=== PATIENT | male | born 1955 | race Caucasian/White ===

== ENCOUNTER → 2016-10-07 | Outpatient (CLI) | payer OTHER ==
[~2016-10-07] MED LIST: /IPRAINH INH; /METO25TAB PO; ADV100INH INH; ALBU17IN INH; ALBU17IN2 INH; AMLO10TA PO; ASPI81TA85 PO; ASPI81TAEC PO; ATIV1TAB10 PO; ATOR40TA PO; ATORVASTATIN PO; ATROVENT INHALER INH; CEFA2IV2 IV; CLOP75TA2 PO; CYCL10TA PO; CYCL10TA3 PO; ETOD200C31 PO; ETOD20CA PO; FISH1000 PO; FLUC10TA PO; LEVA750T PO; LEVO750T PO; LISI-542 PO; LISI10TA4 PO; LOPR1TAB7 PO; MEGA40SU PO; METO-209 PO; METO100T PO; METO25TA2 PO; NICO21PAT TD; ONDA1TAB15 PO; PLAV75TA38 PO; PRED10TA PO; PRED20TAB PO; PROC10TA PO; SPIR1CAP INH; SPIRIVA INH; SYMB16INH INH; TERA1CA PO; TERA2CAP3 PO; TYLE325T5 PO; TYLE500T78 PO; TYLE650T25 PO; ULTR50TA PO; [UNRECOGNIZED DRUG - CODE] INH; [UNRECOGNIZED DRUG - OTHER] PO
== END ==
LOC: M ONCR 14:50
PROVIDERS: ATTEND Radiology Radiation Oncology
DX: C34.32 Malignant neoplasm of lower lobe, left bronchus or lung (principal); C79.31 Secondary malignant neoplasm of brain

== ENCOUNTER → 2016-10-27 | Outpatient (REF) | payer OTHER | LOC: M LAB REF 16:54 | PROVIDERS: ATTEND Internal Medicine Medical Oncology | DX: C34.90 Malignant neoplasm of unspecified part of unspecified bronchus or lung (principal); Z79.899 Other long term (current) drug therapy ==

== ENCOUNTER → 2016-10-29 | Outpatient (CLI) | payer OTHER ==
--- NOTE | 2016-10-30 12:08 | REP ---
MRI BRAIN WITHOUT WITH CONTRAST: 10/29/2016. Clinical history: Restaging lung cancer. Metastatic disease to the brain post radiation therapy ending May 2016. Comparison: MRI brain without and with contrast 05/22/2016 at [facility] . Technique: Axial T1, T2 FLAIR gradient-echo images with diffusion weighted images and ADC mapping sequences along with a sagittal T1 sequence. After infusion of 15 mL as of ProHance, axial, coronal and sagittal T1 sequences were performed. Findings: The lateral ventricles are midline symmetric and mildly prominent but proportionate to the mild diffuse atrophy. This is not much changed. Basal ganglia were symmetric and grossly intact. There are scattered periventricular deep central and subcortical white matter hyperintense foci in both hemispheres similar to previous study. In the high right posterior paramedian parietal lobe there is a ring enhancing lesion. It now measures 2.1 x 1.3 x 1.2 cm. On the previous study it was 3.3 x 2.5 x 2.3 cm. The degree of surrounding vasogenic edema is significantly reduced on the T2 and FLAIR images with only a few millimeters in the depth surrounding the treated lesion. I do not see other ring enhancing lesions or masses. Again noted in the right frontal lobe from the periphery of the frontal pole to the white matter adjacent to the frontal horn is a linear venous anomaly has a benign finding and stable. There is no vascular territory infarct, hemorrhage, edema or other cerebral mass/mass effect. In the posterior fossa to the right of midline is a prominent arachnoid cyst which is seen on the previous exam and also CT brain exams dating back to 11/29/2006. There is no abnormal enhancement at its periphery, this is a benign finding. Some minor cerebellar atrophy of the vermis. Brainstem was unremarkable. The seventh/eighth cranial nerve complexes and mastoids were intact. A few ethmoid air cells with mucosal thickening with the frontal and sphenoid sinuses clear. Orbits and contents were symmetric and normal. The corpus callosum, optic chiasm and pituitary were unremarkable. There is no cerebellar tonsillar ectopia. Impression: 1. Interval radiation therapy treatment for metastatic disease in the high right posterior parietal lobe significant decrease in size of the ring enhancing lesion, now 2.1 x 1.3 x 1.2 cm, previously 3.3 x 2.3 x 2.5 cm and with significant reduction of the adjacent vasogenic edema. 2. Mild diffuse atrophy, a benign venous anomaly of the right frontal lobe which appears to be a venous angioma, and a stable arachnoid cyst right posterior fossa. No other acute finding or chronic finding. Signed by Andry Thompson MD 10/30/2016 04:45 P
== END ==
LOC: M RAD 16:58
PROVIDERS: ATTEND Internal Medicine Medical Oncology
DX: C34.90 Malignant neoplasm of unspecified part of unspecified bronchus or lung (principal); C79.31 Secondary malignant neoplasm of brain
CPT/HCPCS: 70553; A9576

== ENCOUNTER → 2016-12-01 | Outpatient (CLI) | payer OTHER ==
--- NOTE | 2016-12-02 08:17 | RADONC ---
RADIATION ONCOLOGY FOLLOWUP CONSULTATION NOTE DATE: 12/01/216 CHART NUMBER: [id number]. DIAGNOSIS: Small cell lung carcinoma. STAGE: Extensive. ECOG PERFORMANCE STATUS: 1 FOLLOWUP NOTE: Mr. Neves is a very pleasant 61-year-old white male with the diagnosis of extensive stage small cell lung carcinoma who is presenting to us today for a discussion of possible stereotactic radiosurgery for a residual right posterior parietal lobe lesion. HISTORY OF PRESENT ILLNESS: The patient was well known to us and was initially seen by us on May 25, 2016 for consideration of palliative radiation therapy for brain metastases. At that time the patient was found to have a 3.3 cm x 2.3 cm x 2.5 cm ring enhancing lesion in the right posterior parietal lobe. The patient underwent whole brain radiation therapy for a dose of 3000 cGy delivered in 10 fractions of 300 cGy each from May 27, 2016 through June 10, 2016. The brain was treated on a linear accelerator utilizing a 6 MV photon beam. He did well with his brain radiation. The patient subsequently initiated chemotherapy and concomitant thoracic consolidative radiation. He had a very difficult time tolerating those treatments. Overall, he had a total dose of 2700 cGy delivered in 15 fractions of 180 cGy each from 07/21/2016 through 09/04/2016 to his right lung and mediastinum. Radiation was then discontinued. He continued with his systemic therapy, which completed at the end of September. No followup CT scans or PET scans have been done since completion of systemic therapy. The patient reports that he has had some slight drooling out of the corner of his left mouth for the past few months. A new MRI was ordered of the brain which showed a significant reduction in the size of this tumor from an original 3.3 cm x 2.5 cm x 2.3 cm now down to 2.1 cm x 1.3 cm x 1.2 cm. There was also a significant reduction in the adjacent edema. He is now presenting to us for discussion of stereotactic radiosurgery. PAST MEDICAL HISTORY: The patient's past medical history is positive for COPD and emphysema. He has a history of hypertension and has had cardiac stents in the past. He has had cataracts as well as a hemorrhoidectomy and some type of hand surgery. ALLERGIES: The patient has no known drug allergies. SOCIAL HISTORY: The patient had smoked two packs of cigarettes per day for 50 years for over a 100 pack year smoking history. He drinks alcohol socially. FAMILY HISTORY: The patient's family history is positive for a mother with bladder cancer. REVIEW OF SYSTEMS: The patient's review of systems is positive for some difficulties with his knuckles and fingers. Apparently has had placement or surgery on of his right sided fingers. He is now having problems with the joints in his left side. He is [facility] PHYSICAL EXAMINATION: The patient is a chronically ill-appearing white male in no acute distress. HEENT: Exam is normocephalic, atraumatic. Extraocular movements are intact. There is no palpable cervical, supraclavicular, infraclavicular, axillary or inguinal lymphadenopathy present. His lungs are generally clear to auscultation and percussion. His heart has regular rate and rhythm. His abdomen is benign with no hepatosplenomegaly, masses or tenderness. He has tenderness and what appears to be perhaps a dislocated finger on his left hand. ASSESSMENT: At this point, I think it premature to recommend stereotactic radiosurgery for any residual brain tumor. Indeed volume fajardo, we are down to one-eighth of its original volume, having reduced almost one-half for each of the three sides measured. I have ordered a new PET scan to be undertaken on this patient. Pending the results of that, further recommendations can be made. Clearly, if there is disease throughout his body, then I would not recommend stereotactic radiosurgery for what may be a nonactive lesion in the brain. If the patient's state of disease below the brain is clear, then it would be reasonable to consider referring him to Dr. Ayala for consultation regarding the possibilities of stereotactic radiosurgery for residual brain tumor. Once again, I have scheduled the patient for a PET CT scan to be undertaken and we will see him following that study to make final recommendations. Thank you for allowing us to participate in the care of this very pleasant gentleman. If I could be of any further assistance or provide you with any information, please free to contact me anytime. cc: Marisa Serra MD *Britney Nick MD
== END ==
LOC: M ONCR 09:04
PROVIDERS: ATTEND Radiology Radiation Oncology
DX: C34.32 Malignant neoplasm of lower lobe, left bronchus or lung (principal); C79.31 Secondary malignant neoplasm of brain

== ENCOUNTER → 2016-12-01 | Outpatient (CLI) | payer OTHER ==
--- NOTE | 2016-12-01 12:09 | REP ---
Left hand series: Four views. History: Left hand pain. Comparison left hand radiographs are from September 10, 2008. Findings: There is advanced osteoarthritis of the first carpometacarpal articulation. Mild to moderate MCP joint osteoarthritis is seen in the thumb, index, long and ring fingers. There are lesser osteoarthritic changes at the index and long PIP and DIP joints. Subcortical cyst formation is seen in the distal aspect of the second and third metacarpals. No bony destructive lesion is appreciated. Impression: Osteoarthritic changes. Signed by Enrique Gillespie MD 12/01/2016 03:20 P
== END ==
LOC: M RAD 10:27
PROVIDERS: ATTEND Internal Medicine Medical Oncology
DX: M19.042 Primary osteoarthritis, left hand (principal)

== ENCOUNTER → 2016-12-02 | Outpatient (CLI) | payer OTHER ==
--- NOTE | 2016-12-02 19:39 | REP ---
PET/CT: History: Restaging lung carcinoma. Brain metastasis. Comparisons: Comparison PET-CT study is from the 06/10/2016. TECHNIQUE: 79 minutes following the intravenous injection of a 7.3 mCi dose of F-18 FDG, three-dimensional PET scintigraphy is acquired from the skull base to the proximal thighs. Triplanar noncontrast CT scanning is acquired through the same anatomic range for attenuation correction, and image registration with scan parameters optimized to minimize radiation exposure to the patient. PET scintigraphy and CT datasets were fused and displayed on a workstation with multiplanar and projection display capability. PET/CT Findings: There is a new zone of hypermetabolic activity in a nodule in the left lower lobe of the lung, maximum SUV value is 3.5. This somewhat spiculated lung lesion measures 2.5 cm in diameter. There is some at adjacent pulmonary parenchymal opacity which could be infiltrate. The accompanying CT study shows a subtle infiltrate more medially in the left lower lobe. No other abnormal hypermetabolic pulmonary parenchymal uptake is seen. The previously noted hilar and mediastinal adenopathy is no longer visible or hypermetabolic. No new mediastinal hypermetabolic uptake is seen. No adrenal hypermetabolic uptake is observed. In the abdomen and pelvis there is normal distribution of FDG. No abnormal abdominal or pelvic hypermetabolic uptake is seen. Head and neck soft tissues are unremarkable. Impression: The previously noted right hilar and mediastinal hypermetabolic adenopathy has resolved. There is some patchy consolidation in the left lower lobe which may be inflammatory. There is a 2.5 cm spiculated density in the left lower lobe which shows mildly hypermetabolic uptake today. No other abnormal hypermetabolic uptake is seen. Signed by Enrique Gillespie MD 12/03/2016 09:06 A
== END ==
LOC: M RAD 09:35
PROVIDERS: ATTEND Radiology Radiation Oncology
DX: C34.32 Malignant neoplasm of lower lobe, left bronchus or lung (principal)
CPT/HCPCS: 78815; A9552

== ENCOUNTER → 2016-12-10 | Outpatient (CLI) | payer OTHER ==
--- NOTE | 2016-12-16 07:37 | RADONC ---
RADIATION ONCOLOGY PROGRESS NOTE DATE: 12/10/2016 CHART NUMBER: [id number]. DIAGNOSIS: Small cell lung cancer. STAGE: Extensive. ECOG PERFORMANCE STATUS: 1. FOLLOWUP NOTE: Mr. Neves is a very pleasant, 61-year-old white male with the diagnosis of extensive stage small cell lung carcinoma who presented to us on 12/01/2016 for discussion of any further radiation therapy to his brain metastases. Since his consultation, I have presented this case at our multidisciplinary tumor board and I have discussed it in detail with our radiologist, Dr. Gillespie. The volume of the brain target has decreased significantly. Indeed it is approximately 1/8th its previous volume and there is significantly less edema. There is no prove that this is active at this time and considering the fact that he is doing well with no new symptoms or problems it is been recommended to watch this at this point. Of greater significance is some activity in the lung. It was thought to be inflammatory in nature, but as per our discussion, it may be worth following or undergoing further workup. Indeed, if this were to be disease, some type of alternative systemic therapy may be indicated. The consensus appeared to be to repeat x-ray studies in 2 months to 3 months. Therefore, I have set him up for a followup in three months' time. He will also continue his close management and followup through his medical oncologist, Dr. Serra. cc: Marisa Serra MD *Britney Nick MD
== END ==
LOC: M ONCR 14:49
PROVIDERS: ATTEND Radiology Radiation Oncology
DX: C34.32 Malignant neoplasm of lower lobe, left bronchus or lung (principal); C79.31 Secondary malignant neoplasm of brain

== ENCOUNTER → 2017-03-10 | Outpatient (CLI) | payer OTHER ==
--- NOTE | 2017-03-11 08:21 | RADONC ---
RADIATION ONCOLOGY FOLLOWUP NOTE DATE: 03/10/2017 CHART NUMBER: [id number] DIAGNOSIS: Small cell lung carcinoma. STAGE: extensive. ECOG performance status: one. FOLLOWUP NOTE: Mr. Neves is a very pleasant 61-year-old white male with the diagnosis of extensive stage small cell lung carcinoma who is presenting to us today for routine followup visit 7 months post completion of external beam radiation therapy to his lung and 9 months post completion of external beam radiation therapy to his brain. The patient presents today reporting that generally he is doing quite well. He has no new episodes of shortness of breath or headaches. He is having no increased or different bone pain. He has no hemoptysis or other new problems. He continues to have some generalized weakness and inability to gain weight. He is able to swallow ever. REVIEW OF SYSTEMS: The patient's review of systems is noncontributory. Denies nausea, vomiting, fevers, chills, night sweats, diplopia, headaches, anxiety or depression, anorexia, weight loss, visual disturbances, chest pain, urinary or bowel difficulties, bone pain, or neurological problems. PHYSICAL EXAMINATION: The patient is a well-developed, well-nourished male in no acute distress. HEENT exam is normocephalic, atraumatic. Extraocular movements are intact. There is no palpable cervical, supraclavicular, infraclavicular, axillary, or inguinal lymphadenopathy present. Lungs are clear to auscultation and percussion. Heart has a regular rate and rhythm. Abdomen is benign with no hepatosplenomegaly, masses, or tenderness. Rectal examination reveals a normal anal sphincter tone. Skeletal examination reveals no tenderness to pressure or percussion of the bony skeleton. Extremities reveal no clubbing, cyanosis, or edema. Neurologic exam is grossly intact, as is the remainder of the physical examination. ASSESSMENT: The patient is generally clinically stable at this point. I have scheduled him to see me again in 3 months for further followup. He is scheduled see his medical oncologist, Dr. Serra, tomorrow. I have ordered a new CT scan of the chest to be undertaken as a followup to his CT scan done 12/02/2016 which showed a 2.5 cm spiculated density in the left lower lobe which was mildly hypermetabolic in uptake. In addition, I have ordered a new MRI of the brain to be done as a followup to the one done 10/29/2016 which showed a continued to 2.1 cm x 1.3 cm x 1.2 cm lesion in the high right posterior paramedial parietal lobe. I will be discussing this case with the patient's medical oncologist, Dr. Serra, after he sees him tomorrow afternoon. cc: MD Britney Peters MD [facility] HOSPITALNadya
== END ==
LOC: M ONCR 14:01
PROVIDERS: ATTEND Radiology Radiation Oncology
DX: C34.32 Malignant neoplasm of lower lobe, left bronchus or lung (principal); C79.31 Secondary malignant neoplasm of brain

== ENCOUNTER → 2017-03-16 | Outpatient (CLI) | payer OTHER ==
[~2017-03-16] MED LIST changes: +DEXA4TA PO; +GASTROGRAFIN SOLUTION 30ML (Q9963) As Ordered ONE; +ISOVUE-370 76% 100ML VIAL (Q9967) As Ordered ONE
--- NOTE | 2017-03-16 15:16 | REP ---
HISTORY: Metastatic brain disease. COMPARISON: 10/29/2016 Gadolinium utilized: 14 mL of ProHance. There is an area of encephalomalacia seen in the right posterior parietal lobe near the convexities, which is unchanged. The slight degree of enhancement seen circumferential to this region again is decreased compared to the prior. In the left posterior parietal lobe there is a new 1 x 0.9 x 0.8 cm sized enhancing lesion with T2 hypersignal surrounding it. There are no other significant changes compared to the prior exam. IMPRESSION: 1. New enhancing brain lesion in the left posterior parietal lobe consistent with metastatic disease. 2. Continually evolving and improving area of encephalomalacia seen in the right posterior parietal lobe near the convexities as described above. Signed by Matt Washington DO 03/16/2017 04:02 P
== END ==
LOC: M RAD 11:00
PROVIDERS: ATTEND Radiology Radiation Oncology
DX: C34.90 Malignant neoplasm of unspecified part of unspecified bronchus or lung (principal); C79.31 Secondary malignant neoplasm of brain
CPT/HCPCS: 70553; A9576; Q9963; Q9967

== ENCOUNTER → 2017-03-19 | Outpatient (CLI) | payer OTHER ==
[~2017-03-19] MED LIST changes: -GASTROGRAFIN SOLUTION 30ML (Q9963) As Ordered ONE; -ISOVUE-370 76% 100ML VIAL (Q9967) As Ordered ONE
--- NOTE | 2017-03-19 12:40 | REP ---
CT CHEST WITH IV CONTRAST: TECHNIQUE: Axial contrast enhanced images from the thoracic inlet to the upper abdomen using 100 mL Isovue 370 intravenous contrast material with multiplanar reformations. There are diffuse fibrotic changes in the lungs with a predominance of pleural and parenchymal fibrosis medially and anteriorly likely due to prior radiation. Focal fibroatelectatic change is seen in the lingula with a small calcification. There is a tiny 3 mm nodular opacity in the left lower lobe on image 79 which is of doubtful significance. Comparing to the prior CT from the [place] in [place] 04/24/2016 there has been significant improvement of the mediastinal adenopathy. No enlarged mediastinal or hilar lymph nodes are present. Subcentimeter lymph nodes are seen. There is mild pericardial fluid. There is no pleural effusion. The heart is not enlarged. There are degenerative changes of the spine. IMPRESSION: Fibrotic changes. Tiny 3 mm nodular opacity in the left lower lobe is of doubtful significance. Previously noted mediastinal adenopathy has significantly improved with no significant adenopathy in the mediastinal or hilar regions at this time. Mild pericardial effusion. Signed by Shaw Perez MD 03/19/2017 03:16 P
--- NOTE | 2017-03-19 13:04 | REP ---
REASON: History of lung carcinoma. COMPARISON: 07/18/2016 which is the latest prior. CONTRAST: 100 mL Isovue 370. The precontrast enhanced portion of the examination shows no change in the appearance of hepatic or splenic densities. There is a small but new pericardial effusion. There are no nephroliths or choleliths. Contrast enhanced portion of the examination shows the liver, gallbladder, spleen, pancreas, adrenal glands, and kidneys to be within normal limits. Note is again made of an infrarenal abdominal aortic aneurysm unchanged in its greatest AP dimension measuring approximately 3.6 cm in its maximal dimension. There is no para-aortic adenopathy. Evaluation of the bowel loops and their mesenteries show them to be within normal limits. There is no free fluid or free air in the abdomen. CT PELVIS: There is no free fluid or free air. The bowel loops and their mesenteries are within normal limits. There is no evidence of a mass or adenopathy. Bone window technique throughout the exam shows no significant change in the appearance of the osseous structures. Spinal degenerative changes are noted status quo. IMPRESSION: No evidence of acute intra-abdominal or intrapelvic disease with findings as described above. There is a stable infrarenal abdominal aortic aneurysm. Signed by Matt Washington DO 03/19/2017 01:43 P
== END ==
LOC: M RAD 06:35
PROVIDERS: ATTEND Radiology Radiation Oncology
DX: Z85.118 Personal history of other malignant neoplasm of bronchus and lung (principal)

== ENCOUNTER → 2017-03-25 | Outpatient (CLI) | payer OTHER ==
[~2017-03-25] MED LIST changes: -ATOR40TA PO; +ATOR40TA75 PO; -LEVA750T PO; +LEVA750T7 PO; -METO-209 PO; -METO100T PO; +METO100T5 PO; +METO1TAB33 PO; -ONDA1TAB15 PO; +ONDA4TAB5 PO; +PLAV1TAB2 PO; -PLAV75TA38 PO
--- NOTE | 2017-03-25 15:33 | RADONC ---
RADIATION ONCOLOGY CONSULTATION NOTE: DATE: 03/25/2017 CHART NUMBER: [id number] DIAGNOSIS: Small cell lung carcinoma. STAGE: Extensive. ECOG PERFORMANCE STATUS: 1 Mr. Neves is a very pleasant 61-year-old white male with the diagnosis of extensive stage small cell lung carcinoma who is presenting to us today for discussion of possible Re-irradiation to his brain for a new brain metastasis. HISTORY OF PRESENT ILLNESS: The patient is well-known to our department and has been treated on multiple occasions in the past. Most significantly, he completed a course of 3000 cGy delivered in 10 fractions of 300 cGy each from 05/27/2016 through 06/10/2016 to the whole brain for brain metastasis. An MRI of the brain was done on 03/16/2017, which showed complete resolution of the previous lesions. Unfortunately, he developed a new left posterior parietal lobe 1 cm x 0.9 cm x 0.8 cm lesion consistent with a new metastasis. REVIEW OF SYSTEMS: The patient's review of systems is positive for decreased energy and fatigue. It is otherwise largely noncontributory. He denies nausea, vomiting, fevers, chills, night sweats, diplopia, headaches, anxiety or depression, anorexia, weight loss, visual disturbances, chest pain, urinary or bowel difficulties, bone pain, or neurological problems. PHYSICAL EXAMINATION: The patient is a well-developed, well-nourished male in no acute distress. HEENT exam is normocephalic, atraumatic. Extraocular movements are intact. There is no palpable cervical, supraclavicular, infraclavicular, axillary, or inguinal lymphadenopathy present. Lungs are clear to auscultation and percussion. Heart has a regular rate and rhythm. Abdomen is benign with no hepatosplenomegaly, masses, or tenderness. Skeletal examination reveals no tenderness to pressure or percussion of the bony skeleton. Extremities reveal no clubbing, cyanosis, or edema. Neurologic exam is grossly intact, as is the remainder of the physical examination. ASSESSMENT: I had a very lengthy discussion with this patient regarding the possibilities of repeat radiation to his whole brain for this new metastatic site. We discussed the risks or re-irradiation and the possibilities of long-term, permanent and possibly severe brain damage. In light of the fact that we now have a new growing lesion, I think treatment of this area will be required. It is the only reasonable option at this point. The lesion is still rather small and hopefully can be controlled with a limited dose of radiation. The patient has already received 3000 cGy in 10 fractions of 300 cGy each. I am considering delivering an additional 2000 cGy to the entire whole brain and subsequently coning down to the lesion itself for an additional 500 cGy bringing that area to a dose of 2500 cGy in 10 fractions of 250 cGy each. I believe that fractionation and dose schedule will provide the optimal balance between local control as well as elimination of any microscopic unseen sites with the possibility of any long-term difficulties. The patient has agreed to this plan and we will be scheduling him for initiation of treatment planning and simulation. Once again I did discuss with him the logistics of treatment planning simulation and subsequent fractionated daily radiation treatments. Thank you for allowing us to participate in the care of this very pleasant gentleman. Again I will keep you informed of any new developments as they occur. As always warm regards, cc: MD Britney Peters MD
== END ==
LOC: M ONCR 13:54
PROVIDERS: ATTEND Radiology Radiation Oncology
DX: C34.90 Malignant neoplasm of unspecified part of unspecified bronchus or lung (principal)

== ENCOUNTER 2017-04-12 09:20 | Outpatient (RCR) | payer OTHER ==
--- NOTE | 2017-04-12 11:05 | RADONC ---
RADIATION ONCOLOGY SIMULATION NOTE: DATE: 04/12/2017 CHART NUMBER: [id number] Mr. Neves was taken to the CT scan for CT simulation of his whole brain field. CT was accomplished without difficulty or discomfort. Radiation treatment planning is underway and radiation treatments will begin subsequently. An immobilization device including a mask was created without difficulty or discomfort. This will be utilized throughout the course of treatment as well. I was physically present throughout the course of CT simulation. TERESAD
--- NOTE | 2017-04-20 07:59 | RADONC ---
RADIATION ONCOLOGY PROGRESS NOTE DATE: 04/19/2017 CHART NUMBER: [id number] Mr. Neves underwent his first fraction of radiation to the whole brain today. It was tolerated without difficulty or discomfort. REVIEW OF SYSTEMS: The patient's review of systems remains unchanged. PHYSICAL EXAMINATION: The patient's physical exam also remains unchanged. Clearly the skin showed no radiation change. Mr. Neves tolerated his first fraction quite well and radiation will continue as scheduled.
== END 2017-04-26 ==
LOC: M ONCR 09:20
PROVIDERS: ATTEND Radiology Radiation Oncology
DX: C79.31 Secondary malignant neoplasm of brain (principal); C34.32 Malignant neoplasm of lower lobe, left bronchus or lung

== ENCOUNTER → 2017-04-12 | Outpatient (CLI) | payer OTHER | LOC: M RAD 10:31 | PROVIDERS: ATTEND Radiology Radiation Oncology | DX: C34.90 Malignant neoplasm of unspecified part of unspecified bronchus or lung (principal) ==

== ENCOUNTER 2017-04-27 10:18 | Outpatient (RCR) | payer OTHER ==
--- NOTE | 2017-05-03 09:49 | RADONC ---
RADIATION ONCOLOGY TREATMENT SUMMARY: DATE: 04/30/2017 CHART NUMBER: [id number]. DIAGNOSIS: Small cell lung cancer. STAGE: Extensive. ECOG PERFORMANCE STATUS: 1. TREATMENT SUMMARY: Mr. Neves is a 61-year-old white male with the diagnosis of recurrent brain metastasis from small cell lung carcinoma who presented to us for consideration of re-irradiation therapy to his brain. We treated the patient to his whole brain for a total dose of 2000 cGy delivered in 8 fractions of 250 cGy each over 9 elapsed days, from 04/19/2017 through 04/28/2017. The patient's whole brain was treated on a linear accelerator utilizing a 6MV photon beam via parallel opposed lateral shaver. Following completion of 2000 cGy of the whole brain, an additional 500 cGy was delivered in 2 fractions of 250 cGy each to the visualized brain metastases. The two extra fractions was delivered over two elapsed days, from 04/29/2017 through 04/30/2017. This brought those lesions to a total dose of 2500 cGy delivered in 10 fractions of 250 cGy each over 11 elapsed days, from 04/19/2017 through 04/30/2017. The coned down was delivered on a linear accelerator utilizing a 6MV photon beam again via parallel opposed lateral shaver. Mr. Neves tolerated his treatments quite well with no difficulties related to his radiation therapy. He was able to complete therapy as prescribed without interruption. The patient is scheduled see me again in 1 month for further followup. He will also continue to be followed by his other physicians as well. cc: MD Britney Peters MD
== END 2017-05-27 ==
LOC: M ONCR 10:18
PROVIDERS: ATTEND Radiology Radiation Oncology
DX: C79.31 Secondary malignant neoplasm of brain (principal); C34.32 Malignant neoplasm of lower lobe, left bronchus or lung

== ENCOUNTER → 2017-06-09 | Outpatient (CLI) | payer OTHER ==
--- NOTE | 2017-06-10 09:01 | RADONC ---
RADIATION ONCOLOGY FOLLOWUP NOTE DATE: 06/09/2017 CHART NUMBER: [id number]. DIAGNOSIS: Small cell lung cancer. STAGE: Extensive. ECOG PERFORMANCE STATUS: 1. FOLLOWUP NOTE: Mr. 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 The patient presents today reporting that he is doing exceedingly well with no significant difficulties related to his radiation therapy at this time other than a mild posterior acceptable headache, which is occasional. He is having no neurological problems or other issues. REVIEW OF SYSTEMS: The patient's review of systems is noncontributory. Denies nausea, vomiting, fevers, chills, night sweats, diplopia, headaches, anxiety or depression, anorexia, weight loss, visual disturbances, chest pain, urinary or bowel difficulties, bone pain, or neurological problems. PHYSICAL EXAMINATION: The patient is a well-developed, well-nourished male in no acute distress. HEENT exam is normocephalic, atraumatic. Extraocular movements are intact. There is no palpable cervical, supraclavicular, infraclavicular, axillary, or inguinal lymphadenopathy present. Lungs are clear to auscultation and percussion. Heart has a regular rate and rhythm. Abdomen is benign with no hepatosplenomegaly, masses, or tenderness. Rectal examination reveals a normal anal sphincter tone. Skeletal examination reveals no tenderness to pressure or percussion of the bony skeleton. Extremities reveal no clubbing, cyanosis, or edema. Neurologic exam is grossly intact, as is the remainder of the physical examination. ASSESSMENT: The patient is clinically stable at this time. He is scheduled for a new scans with Dr. Serra and further discussion of systemic therapy is being undertaken. In the meantime, his recurrent brain metastasis seems stable and I have set him up for routine followup in our office in 3 months' time. cc: MD Britney Peters MD
== END ==
LOC: M ONCR 15:00
PROVIDERS: ATTEND Radiology Radiation Oncology
DX: C34.32 Malignant neoplasm of lower lobe, left bronchus or lung (principal); C79.31 Secondary malignant neoplasm of brain

== ENCOUNTER → 2017-09-15 | Outpatient (CLI) | payer OTHER ==
--- NOTE | 2017-09-18 14:31 | RADONC ---
RADIATION ONCOLOGY FOLLOWUP NOTE DATE: 09/15/2017 CHART NUMBER: [id number] DIAGNOSIS: Small cell lung carcinoma. STAGE: Extensive. ECOG PERFORMANCE STATUS: 1. FOLLOWUP NOTE: Mr. 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 The patient presents today reporting that generally he is doing quite well. He has no complaints at this time related to his radiation therapy. He reports that he is having no headaches, double vision or other neurological problems at this time. The patient's review of systems is generally noncontributory. He reports that overall he is feeling quite well. He denies nausea, vomiting, fevers, chills, night sweats, diplopia, headaches, anxiety, anorexia, visual disturbances, chest pain increased shortness of breath, urinary or bowel difficulties or neurological problems. PHYSICAL EXAMINATION: Patient is a cachectic, chronically ill-appearing white male in no acute distress. HEENT exam is normocephalic, atraumatic. Extraocular movements are intact. There is no palpable cervical, supraclavicular, infraclavicular, axillary, or inguinal lymphadenopathy present. Lungs are clear to auscultation and percussion. Heart has a regular rate and rhythm. Abdomen is benign with no hepatosplenomegaly, masses, or tenderness. Rectal examination reveals a normal anal sphincter tone. His prostate is smooth with no evidence of nodularity. Skeletal examination reveals no tenderness to pressure or percussion of the bony skeleton. Extremities reveal no clubbing, cyanosis, or edema. Neurologic exam is grossly intact as is the remainder of the physical examination. ASSESSMENT: The patient is being followed closely by Dr. Serra who is seeing him every 3 months. I do not have a report on any CAT scans or studies done since February and I had ordered new CT scans of the chest, abdomen and pelvis. Following that the patient told me he has just had CTs done in the [facility] [address] a few weeks ago. I do not have those results at this time. We will attempt to obtain them. In the meantime I have set this patient up for routine followup in our office in six months' time. He is continuing with his close followup with his medical oncologist. Once again I have cancelled all studies I have ordered since the patient says he has already had them recently. I will defer to Dr. Serra of any studies he may wish to add. cc: MD Britney Peters MD
== END ==
LOC: M ONCR 10:07
PROVIDERS: ATTEND Radiology Radiation Oncology
DX: C34.32 Malignant neoplasm of lower lobe, left bronchus or lung (principal); C79.31 Secondary malignant neoplasm of brain

== ENCOUNTER 2018-01-06 13:33 | Inpatient (IN) | payer OTHER, MEDICAID ==
[2018-01-06] MEDS: ONDANSETRON 4MG/2ML VIAL (J2405) IV (14:30)
[2018-01-06 15:24] LABS: HEMATOCRIT 42.8 % (42.0-52.0); HEMOGLOBIN 14.2 g/dl (13.5-17.5); MEAN CORPUSCULAR HEMOGLOBIN 31.8 pg (27.0-33.0); MEAN CORPUSCULAR HGB CONC 33.2 g/dl (32.0-36.5); MEAN CORPUSCULAR VOLUME 95.7 fl (80.0-96.0); PLATELET COUNT, AUTOMATED 164 10^3/uL (150-450); RED BLOOD COUNT 4.47 10^6/uL (4.30-6.10); RED CELL DISTRIBUTION WIDTH 13.6 % (11.5-14.5)
[2018-01-06] MEDS: MORPHINE 4 MG/ML 1ML VIAL/SYRINGE (J2270) IV ×2 (15:42→23:12)
[2018-01-06 16:27] LABS: INR 0.93; PROTHROMBIN TIME 12.5 SECONDS (12.4-14.5)
[2018-01-06 16:43] LABS: ALBUMIN 3.5 GM/DL (3.2-5.2); ALBUMIN/GLOBULIN RATIO 1.13 (1.00-1.93); ALKALINE PHOSPHATASE 62 U/L (45-117); ALT/SGPT 11 U/L (12-78); ANION GAP 4 MEQ/L (8-16); AST/SGOT 15 U/L (7-37); BILIRUBIN,DIRECT 0.1 MG/DL (0.0-0.2); BILIRUBIN,TOTAL 0.3 MG/DL (0.2-1.0); BLOOD UREA NITROGEN 19 MG/DL (7-18); CALCIUM LEVEL 8.9 MG/DL (8.8-10.2); CARBON DIOXIDE LEVEL 32 MEQ/L (21-32); CHLORIDE LEVEL 103 MEQ/L (98-107); CREATININE FOR GFR 0.87 MG/DL (0.70-1.30); GLOMERULAR FILTRATION RATE > 60.0 (>49); GLUCOSE, FASTING 86 MG/DL (70-100); POTASSIUM SERUM 3.8 MEQ/L (3.5-5.1); SODIUM LEVEL 139 MEQ/L (136-145); TOTAL PROTEIN 6.6 GM/DL (6.4-8.2)
[2018-01-06] MEDS ORDERED: ONDANSETRON 4MG/2ML VIAL (J2405) IV (17:30)
[2018-01-06] MEDS ORDERED: IPRATROPIUM 0.5MG/ALBUTEROL 2.5MG INH SOL UD 3ML (DUONEB)(J7620) NEB (17:30)
[2018-01-06] MEDS: IPRATROPIUM 0.5MG/ALBUTEROL 2.5MG INH SOL UD 3ML (DUONEB)(J7620) NEB (20:03)
[2018-01-06] MEDS: ATORVASTATIN 20 MG TAB PO (23:13)
[2018-01-07] MEDS: IPRATROPIUM 0.5MG/ALBUTEROL 2.5MG INH SOL UD 3ML (DUONEB)(J7620) NEB ×4 (01:52→20:46)
[2018-01-07] MEDS: MORPHINE 4 MG/ML 1ML VIAL/SYRINGE (J2270) IV ×2 (04:51→12:27)
[2018-01-07 07:22] LABS: HEMATOCRIT 40.4 % (42.0-52.0); HEMOGLOBIN 13.6 g/dl (13.5-17.5); MEAN CORPUSCULAR HEMOGLOBIN 31.8 pg (27.0-33.0); MEAN CORPUSCULAR HGB CONC 33.7 g/dl (32.0-36.5); MEAN CORPUSCULAR VOLUME 94.4 fl (80.0-96.0); PLATELET COUNT, AUTOMATED 157 10^3/uL (150-450); RED BLOOD COUNT 4.28 10^6/uL (4.30-6.10); RED CELL DISTRIBUTION WIDTH 13.6 % (11.5-14.5); WHITE BLOOD COUNT 9.2 10^3/uL (4.0-10.0)
[2018-01-07] MEDS: TAMSULOSIN 0.4 MG CAP PO (07:33)
[2018-01-07] MEDS: PERCOCET 5MG/325MG TAB PO ×2 (07:33→20:37)
[2018-01-07 07:58] LABS: ALBUMIN 3.4 GM/DL (3.2-5.2); ALBUMIN/GLOBULIN RATIO 0.89 (1.00-1.93); ALKALINE PHOSPHATASE 60 U/L (45-117); ALT/SGPT 10 U/L (12-78); ANION GAP 4 MEQ/L (8-16); AST/SGOT 10 U/L (7-37); BILIRUBIN,TOTAL 0.7 MG/DL (0.2-1.0); BLOOD UREA NITROGEN 13 MG/DL (7-18); CALCIUM LEVEL 8.9 MG/DL (8.8-10.2); CARBON DIOXIDE LEVEL 30 MEQ/L (21-32); CHLORIDE LEVEL 102 MEQ/L (98-107); CREATININE FOR GFR 0.77 MG/DL (0.70-1.30); GLOMERULAR FILTRATION RATE > 60.0 (>49); GLUCOSE, FASTING 106 MG/DL (70-100); MAGNESIUM LEVEL 1.9 MG/DL (1.8-2.4); POTASSIUM SERUM 3.7 MEQ/L (3.5-5.1); SODIUM LEVEL 136 MEQ/L (136-145); TOTAL PROTEIN 7.2 GM/DL (6.4-8.2)
[2018-01-07] MEDS: TIOTROPIUM INHALER/CAPSULE (SPIRIVA) INH (07:59)
[2018-01-07] MEDS: METOPROLOL TART 25 MG TABLET PO (20:38)
[2018-01-07] MEDS: ATORVASTATIN 20 MG TAB PO (20:38)
[2018-01-08] MEDS: ASPIRIN 81 MG ENTERIC TAB PO ×2 (00:44→08:22)
[2018-01-08] MEDS: MORPHINE 4 MG/ML 1ML VIAL/SYRINGE (J2270) IV ×2 (01:02→05:15)
[2018-01-08] MEDS: IPRATROPIUM 0.5MG/ALBUTEROL 2.5MG INH SOL UD 3ML (DUONEB)(J7620) NEB ×4 (02:00→21:05)
[2018-01-08 06:04] LABS: HEMATOCRIT 37.7 % (42.0-52.0); HEMOGLOBIN 12.8 g/dl (13.5-17.5); MEAN CORPUSCULAR HEMOGLOBIN 31.5 pg (27.0-33.0); MEAN CORPUSCULAR VOLUME 92.9 fl (80.0-96.0); PLATELET COUNT, AUTOMATED 143 10^3/uL (150-450); RED BLOOD COUNT 4.06 10^6/uL (4.30-6.10); RED CELL DISTRIBUTION WIDTH 13.2 % (11.5-14.5); WHITE BLOOD COUNT 8.5 10^3/uL (4.0-10.0)
[2018-01-08 06:21] LABS: ALBUMIN 3.1 GM/DL (3.2-5.2); ALBUMIN/GLOBULIN RATIO 0.86 (1.00-1.93); ALKALINE PHOSPHATASE 53 U/L (45-117); ALT/SGPT < 6 U/L (12-78); ANION GAP 6 MEQ/L (8-16); AST/SGOT 7 U/L (7-37); BILIRUBIN,TOTAL 0.6 MG/DL (0.2-1.0); BLOOD UREA NITROGEN 13 MG/DL (7-18); CALCIUM LEVEL 8.6 MG/DL (8.8-10.2); CARBON DIOXIDE LEVEL 28 MEQ/L (21-32); CHLORIDE LEVEL 103 MEQ/L (98-107); CREATININE FOR GFR 0.78 MG/DL (0.70-1.30); GLOMERULAR FILTRATION RATE > 60.0 (>49); GLUCOSE, FASTING 107 MG/DL (70-100); MAGNESIUM LEVEL 1.9 MG/DL (1.8-2.4); SODIUM LEVEL 137 MEQ/L (136-145); TOTAL PROTEIN 6.7 GM/DL (6.4-8.2)
[2018-01-08] MEDS: TIOTROPIUM INHALER/CAPSULE (SPIRIVA) INH (07:28)
[2018-01-08] MEDS: METOPROLOL TART 25 MG TABLET PO ×2 (08:23→20:58)
[2018-01-08] MEDS: TAMSULOSIN 0.4 MG CAP PO (08:23)
[2018-01-08] MEDS: PERCOCET 5MG/325MG TAB PO ×4 (08:24→12:26)
[2018-01-08] MEDS ORDERED: PROPOFOL 200 MG/20 ML VIAL As Ordered ×2 (09:14→10:41)
[2018-01-08] MEDS ORDERED: fentaNYL 100 MCG/2 ML INJECTION (J3010) As Ordered ×2 (09:15→11:24)
[2018-01-08] MEDS ORDERED: MIDAZOLAM INJ 5 MG/ML VIAL (J2250) As Ordered (09:15)
[2018-01-08] MEDS ORDERED: KETAMINE HCL 200 MG/20 ML VIAL As Ordered (09:17)
[2018-01-08] MEDS: ceFAZolin 2 GM/D5W 50 ML IV BAG (J0690 PER 500MG) As Ordered (09:37)
[2018-01-08] MEDS ORDERED: KETOROLAC 60 MG/2 ML VIAL (J1885) As Ordered (10:45)
[2018-01-08] MEDS ORDERED: ONDANSETRON 4MG/2ML VIAL (J2405) As Ordered (10:45)
[2018-01-08] MEDS ORDERED: PERCOCET 5MG/325MG TAB As Ordered (11:24)
[2018-01-08] MEDS: fentaNYL 100 MCG/2 ML INJECTION (J3010) IV ×4 (11:28→12:26)
[2018-01-08] MEDS ORDERED: ONDANSETRON 4MG/2ML VIAL (J2405) IV (11:30)
[2018-01-08] MEDS: LR 1,000 ML IV (11:30)
[2018-01-08] MEDS: NICOTINE 21MG/24HR 1 EA TRANSDERMAL TD (15:56)
[2018-01-08] MEDS: ATORVASTATIN 20 MG TAB PO (20:58)
[2018-01-08] MEDS: ACETAMINOPHEN TAB 650MG DOSE (2X325MG) PO (20:59)
[2018-01-09] MEDS ORDERED: traMADol 50 MG TAB PO ×3 (01:30→13:00)
[2018-01-09] MEDS: IPRATROPIUM 0.5MG/ALBUTEROL 2.5MG INH SOL UD 3ML (DUONEB)(J7620) NEB ×4 (01:55→20:00)
[2018-01-09 05:21] LABS: HEMATOCRIT 36.1 % (42.0-52.0); HEMOGLOBIN 12.2 g/dl (13.5-17.5); MEAN CORPUSCULAR HEMOGLOBIN 31.7 pg (27.0-33.0); MEAN CORPUSCULAR HGB CONC 33.8 g/dl (32.0-36.5); MEAN CORPUSCULAR VOLUME 93.8 fl (80.0-96.0); PLATELET COUNT, AUTOMATED 138 10^3/uL (150-450); RED BLOOD COUNT 3.85 10^6/uL (4.30-6.10); RED CELL DISTRIBUTION WIDTH 13.4 % (11.5-14.5); WHITE BLOOD COUNT 8.9 10^3/uL (4.0-10.0)
[2018-01-09 05:41] LABS: ALBUMIN 2.9 GM/DL (3.2-5.2); ALBUMIN/GLOBULIN RATIO 0.74 (1.00-1.93); ALKALINE PHOSPHATASE 58 U/L (45-117); ALT/SGPT 8 U/L (12-78); ANION GAP 7 MEQ/L (8-16); AST/SGOT 15 U/L (7-37); BILIRUBIN,TOTAL 0.7 MG/DL (0.2-1.0); BLOOD UREA NITROGEN 26 MG/DL (7-18); CALCIUM LEVEL 8.6 MG/DL (8.8-10.2); CARBON DIOXIDE LEVEL 27 MEQ/L (21-32); CHLORIDE LEVEL 103 MEQ/L (98-107); CREATININE FOR GFR 0.88 MG/DL (0.70-1.30); GLOMERULAR FILTRATION RATE > 60.0 (>49); GLUCOSE, FASTING 119 MG/DL (70-100); MAGNESIUM LEVEL 2.1 MG/DL (1.8-2.4); SODIUM LEVEL 137 MEQ/L (136-145); TOTAL PROTEIN 6.8 GM/DL (6.4-8.2)
[2018-01-09] MEDS: TIOTROPIUM INHALER/CAPSULE (SPIRIVA) INH (07:14)
[2018-01-09] MEDS: ASPIRIN 81 MG ENTERIC TAB PO (07:37)
[2018-01-09] MEDS: NICOTINE 21MG/24HR 1 EA TRANSDERMAL TD (07:38)
[2018-01-09] MEDS: TAMSULOSIN 0.4 MG CAP PO (07:38)
[2018-01-09] MEDS: METOPROLOL TART 25 MG TABLET PO ×2 (07:38→21:37)
[2018-01-09] MEDS: PERCOCET 5MG/325MG TAB PO (07:38)
[2018-01-09 08:46] LABS: INR 1.08; PROTHROMBIN TIME 14.1 SECONDS (12.4-14.5)
[2018-01-09] MEDS: MIRALAX *UNIT DOSE* 17GM PACKET PO (17:03)
[2018-01-09] MEDS: WARFARIN SOD 5 MG TAB PO (17:04)
[2018-01-09] MEDS: MOM 30ML SUSPENSION UDC PO (17:04)
[2018-01-09] MEDS: ACETAMINOPHEN TAB 650MG DOSE (2X325MG) PO ×2 (17:05→21:37)
[2018-01-09] MEDS: SENOKOT S TAB PO (21:37)
[2018-01-09] MEDS: ATORVASTATIN 20 MG TAB PO (21:38)
[2018-01-10] MEDS: IPRATROPIUM 0.5MG/ALBUTEROL 2.5MG INH SOL UD 3ML (DUONEB)(J7620) NEB ×5 (02:00→23:27)
[2018-01-10] MEDS: traMADol 50 MG TAB PO ×2 (05:26→22:02)
[2018-01-10] MEDS: ACETAMINOPHEN TAB 650MG DOSE (2X325MG) PO ×2 (05:32→22:03)
[2018-01-10 06:55] LABS: HEMATOCRIT 34.4 % (42.0-52.0); HEMOGLOBIN 11.5 g/dl (13.5-17.5); MEAN CORPUSCULAR HEMOGLOBIN 31.8 pg (27.0-33.0); MEAN CORPUSCULAR HGB CONC 33.4 g/dl (32.0-36.5); PLATELET COUNT, AUTOMATED 111 10^3/uL (150-450); RED BLOOD COUNT 3.62 10^6/uL (4.30-6.10); RED CELL DISTRIBUTION WIDTH 13.5 % (11.5-14.5); WHITE BLOOD COUNT 6.6 10^3/uL (4.0-10.0)
[2018-01-10 07:05] LABS: INR 1.05; PROTHROMBIN TIME 13.8 SECONDS (12.4-14.5)
[2018-01-10 07:22] LABS: ALBUMIN 2.9 GM/DL (3.2-5.2); ALBUMIN/GLOBULIN RATIO 0.76 (1.00-1.93); ALKALINE PHOSPHATASE 53 U/L (45-117); ALT/SGPT < 6 U/L (12-78); ANION GAP 6 MEQ/L (8-16); AST/SGOT 12 U/L (7-37); BILIRUBIN,TOTAL 0.6 MG/DL (0.2-1.0); BLOOD UREA NITROGEN 22 MG/DL (7-18); CALCIUM LEVEL 8.5 MG/DL (8.8-10.2); CARBON DIOXIDE LEVEL 29 MEQ/L (21-32); CHLORIDE LEVEL 103 MEQ/L (98-107); CREATININE FOR GFR 0.76 MG/DL (0.70-1.30); GLOMERULAR FILTRATION RATE > 60.0 (>49); GLUCOSE, FASTING 113 MG/DL (70-100); MAGNESIUM LEVEL 2.2 MG/DL (1.8-2.4); POTASSIUM SERUM 4.1 MEQ/L (3.5-5.1); SODIUM LEVEL 138 MEQ/L (136-145); TOTAL PROTEIN 6.7 GM/DL (6.4-8.2)
[2018-01-10] MEDS: TIOTROPIUM INHALER/CAPSULE (SPIRIVA) INH (07:33)
[2018-01-10] MEDS: MOM 30ML SUSPENSION UDC PO (10:03)
[2018-01-10] MEDS: ASPIRIN 81 MG ENTERIC TAB PO (10:03)
[2018-01-10] MEDS: TAMSULOSIN 0.4 MG CAP PO (10:03)
[2018-01-10] MEDS: SENOKOT S TAB PO ×2 (10:03→22:02)
[2018-01-10] MEDS: MIRALAX *UNIT DOSE* 17GM PACKET PO (10:03)
[2018-01-10] MEDS: NICOTINE 21MG/24HR 1 EA TRANSDERMAL TD (10:03)
[2018-01-10] MEDS: METOPROLOL TART 25 MG TABLET PO ×2 (10:04→22:02)
[2018-01-10] MEDS: ATORVASTATIN 20 MG TAB PO (22:03)
[2018-01-11] MEDS: ACETAMINOPHEN TAB 650MG DOSE (2X325MG) PO ×3 (06:32→21:36)
[2018-01-11] MEDS: traMADol 50 MG TAB PO ×2 (06:33→16:01)
[2018-01-11 06:44] LABS: HEMATOCRIT 31.7 % (42.0-52.0); HEMOGLOBIN 10.5 g/dl (13.5-17.5); MEAN CORPUSCULAR HEMOGLOBIN 31.9 pg (27.0-33.0); MEAN CORPUSCULAR HGB CONC 33.1 g/dl (32.0-36.5); MEAN CORPUSCULAR VOLUME 96.4 fl (80.0-96.0); PLATELET COUNT, AUTOMATED 132 10^3/uL (150-450); RED BLOOD COUNT 3.29 10^6/uL (4.30-6.10); RED CELL DISTRIBUTION WIDTH 13.4 % (11.5-14.5); WHITE BLOOD COUNT 5.8 10^3/uL (4.0-10.0)
[2018-01-11 07:10] LABS: ALBUMIN 2.6 GM/DL (3.2-5.2); ALBUMIN/GLOBULIN RATIO 0.68 (1.00-1.93); ALKALINE PHOSPHATASE 50 U/L (45-117); ALT/SGPT < 6 U/L (12-78); ANION GAP 7 MEQ/L (8-16); AST/SGOT 11 U/L (7-37); BILIRUBIN,TOTAL 0.5 MG/DL (0.2-1.0); BLOOD UREA NITROGEN 22 MG/DL (7-18); CALCIUM LEVEL 8.2 MG/DL (8.8-10.2); CARBON DIOXIDE LEVEL 29 MEQ/L (21-32); CHLORIDE LEVEL 103 MEQ/L (98-107); CREATININE FOR GFR 0.75 MG/DL (0.70-1.30); GLOMERULAR FILTRATION RATE > 60.0 (>49); GLUCOSE, FASTING 94 MG/DL (70-100); MAGNESIUM LEVEL 2.4 MG/DL (1.8-2.4); POTASSIUM SERUM 4.2 MEQ/L (3.5-5.1); SODIUM LEVEL 139 MEQ/L (136-145); TOTAL PROTEIN 6.4 GM/DL (6.4-8.2)
[2018-01-11 07:13] LABS: INR 1.02; PROTHROMBIN TIME 13.6 SECONDS (12.4-14.5)
[2018-01-11] MEDS: TIOTROPIUM INHALER/CAPSULE (SPIRIVA) INH (07:21)
[2018-01-11] MEDS: IPRATROPIUM 0.5MG/ALBUTEROL 2.5MG INH SOL UD 3ML (DUONEB)(J7620) NEB ×3 (07:21→20:00)
[2018-01-11] MEDS: NICOTINE 21MG/24HR 1 EA TRANSDERMAL TD (09:47)
[2018-01-11] MEDS: SENOKOT S TAB PO ×2 (09:47→21:35)
[2018-01-11] MEDS: MIRALAX *UNIT DOSE* 17GM PACKET PO (09:47)
[2018-01-11] MEDS: MOM 30ML SUSPENSION UDC PO (09:47)
[2018-01-11] MEDS: TAMSULOSIN 0.4 MG CAP PO (09:47)
[2018-01-11] MEDS: ASPIRIN 81 MG ENTERIC TAB PO (09:47)
[2018-01-11] MEDS: METOPROLOL TART 25 MG TABLET PO ×2 (09:48→21:36)
[2018-01-11] MEDS: WARFARIN SOD 7.5 MG TAB PO (17:19)
[2018-01-11] MEDS: ATORVASTATIN 20 MG TAB PO (21:36)
[2018-01-12] MEDS: IPRATROPIUM 0.5MG/ALBUTEROL 2.5MG INH SOL UD 3ML (DUONEB)(J7620) NEB ×4 (01:54→19:42)
[2018-01-12] MEDS: ACETAMINOPHEN TAB 650MG DOSE (2X325MG) PO (06:38)
[2018-01-12] MEDS: traMADol 50 MG TAB PO ×2 (06:39→21:58)
[2018-01-12 06:59] LABS: HEMOGLOBIN 10.6 g/dl (13.5-17.5); MEAN CORPUSCULAR HEMOGLOBIN 31.7 pg (27.0-33.0); MEAN CORPUSCULAR HGB CONC 33.1 g/dl (32.0-36.5); MEAN CORPUSCULAR VOLUME 95.8 fl (80.0-96.0); PLATELET COUNT, AUTOMATED 134 10^3/uL (150-450); RED BLOOD COUNT 3.34 10^6/uL (4.30-6.10); RED CELL DISTRIBUTION WIDTH 13.2 % (11.5-14.5)
[2018-01-12 07:10] LABS: INR 1.02; PROTHROMBIN TIME 13.5 SECONDS (12.4-14.5)
[2018-01-12 07:17] LABS: ALBUMIN/GLOBULIN RATIO 0.77 (1.00-1.93); ALKALINE PHOSPHATASE 57 U/L (45-117); ALT/SGPT 9 U/L (12-78); ANION GAP 5 MEQ/L (8-16); AST/SGOT 11 U/L (7-37); BILIRUBIN,TOTAL 0.6 MG/DL (0.2-1.0); BLOOD UREA NITROGEN 21 MG/DL (7-18); CALCIUM LEVEL 8.7 MG/DL (8.8-10.2); CARBON DIOXIDE LEVEL 29 MEQ/L (21-32); CHLORIDE LEVEL 102 MEQ/L (98-107); GLOMERULAR FILTRATION RATE > 60.0 (>49); GLUCOSE, FASTING 90 MG/DL (70-100); MAGNESIUM LEVEL 2.1 MG/DL (1.8-2.4); SODIUM LEVEL 136 MEQ/L (136-145); TOTAL PROTEIN 6.9 GM/DL (6.4-8.2)
[2018-01-12] MEDS: MOM 30ML SUSPENSION UDC PO (09:37)
[2018-01-12] MEDS: MIRALAX *UNIT DOSE* 17GM PACKET PO (09:37)
[2018-01-12] MEDS: METOPROLOL TART 25 MG TABLET PO ×2 (09:38→21:59)
[2018-01-12] MEDS: SENOKOT S TAB PO ×2 (09:38→21:58)
[2018-01-12] MEDS: TAMSULOSIN 0.4 MG CAP PO (09:38)
[2018-01-12] MEDS: ASPIRIN 81 MG ENTERIC TAB PO (09:38)
[2018-01-12] MEDS: NICOTINE 21MG/24HR 1 EA TRANSDERMAL TD (09:38)
[2018-01-12] MEDS: ENOXAPARIN 40 MG/0.4 ML SYRINGE (J1650) SC (09:46)
[2018-01-12] MEDS: TIOTROPIUM INHALER/CAPSULE (SPIRIVA) INH (14:09)
[2018-01-12] MEDS: WARFARIN SOD 7.5 MG TAB PO (17:01)
[2018-01-12] MEDS: ATORVASTATIN 20 MG TAB PO (21:59)
[2018-01-13] MEDS: IPRATROPIUM 0.5MG/ALBUTEROL 2.5MG INH SOL UD 3ML (DUONEB)(J7620) NEB ×3 (01:52→13:17)
[2018-01-13 06:57] LABS: HEMATOCRIT 29.6 % (42.0-52.0); HEMOGLOBIN 9.9 g/dl (13.5-17.5); MEAN CORPUSCULAR HEMOGLOBIN 30.9 pg (27.0-33.0); MEAN CORPUSCULAR HGB CONC 33.4 g/dl (32.0-36.5); MEAN CORPUSCULAR VOLUME 92.5 fl (80.0-96.0); PLATELET COUNT, AUTOMATED 159 10^3/uL (150-450); RED CELL DISTRIBUTION WIDTH 12.8 % (11.5-14.5); WHITE BLOOD COUNT 5.3 10^3/uL (4.0-10.0)
[2018-01-13 07:06] LABS: INR 1.24; PROTHROMBIN TIME 15.8 SECONDS (12.4-14.5)
[2018-01-13 07:22] LABS: ALBUMIN 2.7 GM/DL (3.2-5.2); ALBUMIN/GLOBULIN RATIO 0.77 (1.00-1.93); ALKALINE PHOSPHATASE 52 U/L (45-117); ALT/SGPT 10 U/L (12-78); ANION GAP 4 MEQ/L (8-16); AST/SGOT 15 U/L (7-37); BILIRUBIN,TOTAL 0.6 MG/DL (0.2-1.0); BLOOD UREA NITROGEN 17 MG/DL (7-18); CALCIUM LEVEL 8.3 MG/DL (8.8-10.2); CARBON DIOXIDE LEVEL 29 MEQ/L (21-32); CHLORIDE LEVEL 101 MEQ/L (98-107); CREATININE FOR GFR 0.67 MG/DL (0.70-1.30); GLOMERULAR FILTRATION RATE > 60.0 (>49); GLUCOSE, FASTING 87 MG/DL (70-100); MAGNESIUM LEVEL 2.2 MG/DL (1.8-2.4); SODIUM LEVEL 134 MEQ/L (136-145); TOTAL PROTEIN 6.2 GM/DL (6.4-8.2)
[2018-01-13] MEDS: TIOTROPIUM INHALER/CAPSULE (SPIRIVA) INH (07:53)
[2018-01-13] MEDS: traMADol 50 MG TAB PO (08:08)
[2018-01-13] MEDS: ACETAMINOPHEN TAB 650MG DOSE (2X325MG) PO ×2 (08:08→12:38)
[2018-01-13] MEDS: MIRALAX *UNIT DOSE* 17GM PACKET PO (09:00)
[2018-01-13] MEDS: MOM 30ML SUSPENSION UDC PO (09:00)
[2018-01-13] MEDS: SENOKOT S TAB PO (09:00)
[2018-01-13] MEDS: NICOTINE 21MG/24HR 1 EA TRANSDERMAL TD (10:35)
[2018-01-13] MEDS: TAMSULOSIN 0.4 MG CAP PO (10:36)
[2018-01-13] MEDS: ASPIRIN 81 MG ENTERIC TAB PO (10:36)
[2018-01-13] MEDS: METOPROLOL TART 25 MG TABLET PO (10:36)
[2018-01-13] MEDS ORDERED: WARFARIN SOD 5 MG TAB PO (17:00)
== END 2018-01-13 13:05 | DRG 480 ==
LOC: M MS5PR 01-09 15:10 → M ED 13:33 → M ED INP 17:18 → M MSPAV 22:44
PROC: 0QH706Z Insertion of Intramedullary Internal Fixation Device into Left Upper Femur, Open Approach (ICD-10-PCS; principal; 2018-01-08 09:37)
DX: S72.142A Displaced intertrochanteric fracture of left femur, initial encounter for closed fracture (principal); G93.41 Metabolic encephalopathy; R64 Cachexia; I10 Essential (primary) hypertension; I25.10 Atherosclerotic heart disease of native coronary artery without angina pectoris; J44.9 Chronic obstructive pulmonary disease, unspecified; E78.5 Hyperlipidemia, unspecified; F41.9 Anxiety disorder, unspecified; N40.0 Benign prostatic hyperplasia without lower urinary tract symptoms; F17.210 Nicotine dependence, cigarettes, uncomplicated; W10.8XXA Fall (on) (from) other stairs and steps, initial encounter; M19.90 Unspecified osteoarthritis, unspecified site; Y92.008 Other place in unspecified non-institutional (private) residence as the place of occurrence of the external cause; Z79.82 Long term (current) use of aspirin; Z79.899 Other long term (current) drug therapy; Z88.8 Allergy status to other drugs, medicaments and biological substances; Z92.3 Personal history of irradiation; Z95.5 Presence of coronary angioplasty implant and graft; Z85.118 Personal history of other malignant neoplasm of bronchus and lung; Z85.841 Personal history of malignant neoplasm of brain; Z92.21 Personal history of antineoplastic chemotherapy

== ENCOUNTER → 2018-01-14 | Outpatient (REF) ==
[2018-01-14 16:54] LABS: HEMATOCRIT 33.4 % (42.0-52.0); HEMOGLOBIN 11.3 g/dl (13.5-17.5); MEAN CORPUSCULAR HEMOGLOBIN 31.6 pg (27.0-33.0); MEAN CORPUSCULAR HGB CONC 33.8 g/dl (32.0-36.5); MEAN CORPUSCULAR VOLUME 93.3 fl (80.0-96.0); PLATELET COUNT, AUTOMATED 215 10^3/uL (150-450); RED BLOOD COUNT 3.58 10^6/uL (4.30-6.10); WHITE BLOOD COUNT 7.3 10^3/uL (4.0-10.0)
[2018-01-14 17:11] LABS: ANION GAP 9 MEQ/L (8-16); BLOOD UREA NITROGEN 19 MG/DL (7-18); CALCIUM LEVEL 8.4 MG/DL (8.8-10.2); CARBON DIOXIDE LEVEL 29 MEQ/L (21-32); CHLORIDE LEVEL 100 MEQ/L (98-107); CREATININE FOR GFR 0.73 MG/DL (0.70-1.30); GLOMERULAR FILTRATION RATE > 60.0 (>49); GLUCOSE, FASTING 76 MG/DL (70-100); SODIUM LEVEL 138 MEQ/L (136-145)
== END ==
DX: R19.7 Diarrhea, unspecified (principal)

== ENCOUNTER → 2018-01-18 | Outpatient (REF) ==
[2018-01-18 10:46] LABS: HEMATOCRIT 32.1 % (42.0-52.0); HEMOGLOBIN 10.7 g/dl (13.5-17.5); MEAN CORPUSCULAR HEMOGLOBIN 31.8 pg (27.0-33.0); MEAN CORPUSCULAR HGB CONC 33.3 g/dl (32.0-36.5); MEAN CORPUSCULAR VOLUME 95.5 fl (80.0-96.0); PLATELET COUNT, AUTOMATED 288 10^3/uL (150-450); RED BLOOD COUNT 3.36 10^6/uL (4.30-6.10); RED CELL DISTRIBUTION WIDTH 13.5 % (11.5-14.5)
[2018-01-18 11:21] LABS: ANION GAP 8 MEQ/L (8-16); BLOOD UREA NITROGEN 16 MG/DL (7-18); CALCIUM LEVEL 8.5 MG/DL (8.8-10.2); CARBON DIOXIDE LEVEL 28 MEQ/L (21-32); CHLORIDE LEVEL 99 MEQ/L (98-107); CREATININE FOR GFR 0.71 MG/DL (0.70-1.30); GLOMERULAR FILTRATION RATE > 60.0 (>49); GLUCOSE, FASTING 88 MG/DL (70-100); POTASSIUM SERUM 4.2 MEQ/L (3.5-5.1); SODIUM LEVEL 135 MEQ/L (136-145)
== END ==
DX: Z98.890 Other specified postprocedural states (principal)

== ENCOUNTER → 2018-01-25 | Outpatient (REF) ==
[2018-01-25 18:29] LABS: HEMATOCRIT 31.8 % (42.0-52.0); HEMOGLOBIN 10.5 g/dl (13.5-17.5); MEAN CORPUSCULAR HEMOGLOBIN 31.6 pg (27.0-33.0); MEAN CORPUSCULAR VOLUME 95.8 fl (80.0-96.0); PLATELET COUNT, AUTOMATED 240 10^3/uL (150-450); RED BLOOD COUNT 3.32 10^6/uL (4.30-6.10); RED CELL DISTRIBUTION WIDTH 13.8 % (11.5-14.5); WHITE BLOOD COUNT 6.4 10^3/uL (4.0-10.0)
[2018-01-25 19:04] LABS: ANION GAP 9 MEQ/L (8-16); BLOOD UREA NITROGEN 18 MG/DL (7-18); CALCIUM LEVEL 8.1 MG/DL (8.8-10.2); CARBON DIOXIDE LEVEL 29 MEQ/L (21-32); CHLORIDE LEVEL 103 MEQ/L (98-107); CREATININE FOR GFR 0.78 MG/DL (0.70-1.30); GLOMERULAR FILTRATION RATE > 60.0 (>49); GLUCOSE, FASTING 100 MG/DL (70-100); POTASSIUM SERUM 4.3 MEQ/L (3.5-5.1); SODIUM LEVEL 141 MEQ/L (136-145)
== END ==
DX: C34.90 Malignant neoplasm of unspecified part of unspecified bronchus or lung (principal); R05 Cough; R53.83 Other fatigue

== ENCOUNTER → 2018-01-26 | Outpatient (REF) | DX: R19.7 Diarrhea, unspecified (principal) ==

== ENCOUNTER → 2018-02-15 | Outpatient (REF) ==
[2018-02-15 11:54] LABS: HEMATOCRIT 35.8 % (42.0-52.0); HEMOGLOBIN 11.6 g/dl (13.5-17.5); MEAN CORPUSCULAR HEMOGLOBIN 31.8 pg (27.0-33.0); MEAN CORPUSCULAR HGB CONC 32.4 g/dl (32.0-36.5); MEAN CORPUSCULAR VOLUME 98.1 fl (80.0-96.0); PLATELET COUNT, AUTOMATED 158 10^3/uL (150-450); RED BLOOD COUNT 3.65 10^6/uL (4.30-6.10); RED CELL DISTRIBUTION WIDTH 13.9 % (11.5-14.5); WHITE BLOOD COUNT 5.3 10^3/uL (4.0-10.0)
[2018-02-15 12:27] LABS: ANION GAP 5 MEQ/L (8-16); BLOOD UREA NITROGEN 16 MG/DL (7-18); CALCIUM LEVEL 8.8 MG/DL (8.8-10.2); CARBON DIOXIDE LEVEL 33 MEQ/L (21-32); CHLORIDE LEVEL 102 MEQ/L (98-107); GLOMERULAR FILTRATION RATE > 60.0 (>49); GLUCOSE, FASTING 68 MG/DL (70-100); SODIUM LEVEL 140 MEQ/L (136-145)
== END ==
DX: E78.5 Hyperlipidemia, unspecified (principal); I10 Essential (primary) hypertension

== ENCOUNTER → 2018-03-23 | Outpatient (CLI) | payer OTHER | LOC: M ONCR 09:27 | DX: C79.31 Secondary malignant neoplasm of brain (principal); C34.90 Malignant neoplasm of unspecified part of unspecified bronchus or lung | CPT/HCPCS: G0463 ==

== ENCOUNTER 2018-03-29 21:20 | Inpatient (IN) | payer MEDICAID, OTHER ==
[2018-03-29] MEDS: NS 500 ML IV ×2 (22:00)
[2018-03-29 22:45] LABS: BASO # 0.1 10^3/uL (0.0-0.2); BASO % 0.9 % (0.0-1.0); EOS # 0.2 10^3/uL (0.0-0.50); EOS % 2.4 % (0.0-3.0); HEMATOCRIT 36.7 % (42.0-52.0); HEMOGLOBIN 12.2 g/dl (13.5-17.5); IMMATURE GRANULOCYTE % 0.3 % (0-3.0); LYMPH # 0.8 10^3/uL (1.5-4.5); LYMPH % 12.2 % (24.0-44.0); MEAN CORPUSCULAR HEMOGLOBIN 31.8 pg (27.0-33.0); MEAN CORPUSCULAR HGB CONC 33.2 g/dl (32.0-36.5); MEAN CORPUSCULAR VOLUME 95.6 fl (80.0-96.0); MONO # 0.7 10^3/uL (0.0-0.8); MONO % 10.3 % (0.0-5.0); NEUTROPHILS # 4.7 10^3/uL (1.8-7.7); NEUTROPHILS % 73.9 % (36.0-66.0); PLATELET COUNT, AUTOMATED 193 10^3/uL (150-450); RED BLOOD COUNT 3.84 10^6/uL (4.30-6.10); RED CELL DISTRIBUTION WIDTH 13.4 % (11.5-14.5); WHITE BLOOD COUNT 6.4 10^3/uL (4.0-10.0)
[2018-03-29 23:01] LABS: BEDSIDE GLUCOSE 98 MG/DL (80-115)
[2018-03-29 23:05] LABS: AMMONIA 16 uMOL/L (<32)
[2018-03-29 23:05] LABS: OSMOLALITY SERUM 285 MOSM/KG (280-301)
[2018-03-29 23:09] LABS: LACTIC ACID SEPSIS PROTOCOL 0.7 MMOL/L (0.4-2.0)
[2018-03-29 23:15] LABS: KETONE, URINE AUTO RFX TRACE mg/dL (NEGATIVE); LEUKOCYTE ESTERASE UR AUTO RFX NEGATIVE (NEGATIVE); MUCUS, URINE RFX SMALL (NEGATIVE); NITRITE, URINE AUTO RFX NEGATIVE (NEGATIVE); RBC, URINE AUTO RFX 2 /HPF (0-3); SPECIFIC GRAVITY UR AUTO RFX 1.027 (1.002-1.035); SQUAM EPITHELIAL CELL UR AURFX 0 /HPF (0-6); WBC, URINE AUTO RFX 0 /HPF (0-3)
[2018-03-29 23:16] LABS: ALBUMIN 3.4 GM/DL (3.2-5.2); ALKALINE PHOSPHATASE 63 U/L (45-117); ALT/SGPT 12 U/L (12-78); ANION GAP 7 MEQ/L (8-16); AST/SGOT 19 U/L (7-37); BILIRUBIN,DIRECT 0.1 MG/DL (0.0-0.2); BILIRUBIN,TOTAL 0.3 MG/DL (0.2-1.0); BLOOD UREA NITROGEN 20 MG/DL (7-18); CALCIUM LEVEL 8.6 MG/DL (8.8-10.2); CARBON DIOXIDE LEVEL 30 MEQ/L (21-32); CHLORIDE LEVEL 102 MEQ/L (98-107); CPK CREATINE PHOSPHOKINASE 504 U/L (39-308); CREATININE FOR GFR 1.04 MG/DL (0.70-1.30); GLOMERULAR FILTRATION RATE > 60.0 (>49); GLUCOSE, FASTING 92 MG/DL (70-100); POTASSIUM SERUM 3.8 MEQ/L (3.5-5.1); SODIUM LEVEL 139 MEQ/L (136-145); TOTAL PROTEIN 6.5 GM/DL (6.4-8.2); TROPONIN I < 0.02 NG/ML (< 0.10)
[2018-03-29 23:22] LABS: CK-MB VALUE MASS 4.6 NG/ML (<3.6); MB/CK RELATIVE INDEX 0.91 (< OR =4)
[2018-03-29 23:25] LABS: AMPHETAMINES LEVEL URINE NEGATIVE (NEGATIVE); BARBITURATES URINE NEGATIVE (NEGATIVE); BENZODIAZEPINES URINE NEGATIVE (NEGATIVE); CANNABINOIDS URINE POSITIVE (NEGATIVE); COCAINE METABOLITE URINE NEGATIVE (NEGATIVE); METHADONE URINE NEGATIVE (NEGATIVE); OPIATES URINE NEGATIVE (NEGATIVE); PHENCYCLIDINE URINE NEGATIVE (NEGATIVE)
[2018-03-29 23:37] LABS: ETHYL ALCOHOL (ETHANOL) < 0.003 % (0.000-0.010)
[2018-03-30] MEDS: cefTRIAXone SOD 2 GM in D5W MINI-BAG PLUS 50 ML IV (00:30)
[2018-03-30] MEDS: AZITHROMYCIN INJ 500 MG, VIAL MATE ADAPTER 1 EACH in D5W 250 ML IV ×2 (01:00)
[2018-03-30] MEDS ORDERED: BISACODYL 5 MG TAB PO ×2 (01:45)
[2018-03-30] MEDS ORDERED: ONDANSETRON 4 MG TAB (S0181) PO ×2 (01:45)
[2018-03-30] MEDS ORDERED: ALBUTEROL SULFATE 2.5 MG/0.5 ML INH NEB SOLN INH ×2 (01:45)
[2018-03-30] MEDS ORDERED: ALBUTEROL 90 MCG/ACT 8GM HFA INHALER INH ×2 (01:45)
[2018-03-30] MEDS ORDERED: ACETAMINOPHEN 500 MG TAB PO ×2 (01:45)
[2018-03-30 01:56] LABS: MAGNESIUM LEVEL 1.8 MG/DL (1.8-2.4)
[2018-03-30] MEDS: ASPIRIN 81 MG CHEW TABLET PO ×2 (03:26)
[2018-03-30] MEDS: ENOXAPARIN 40 MG/0.4 ML SYRINGE (J1650) SC ×2 (08:32)
[2018-03-30] MEDS: TAMSULOSIN 0.4 MG CAP PO ×2 (08:32)
[2018-03-30] MEDS: traMADol 50 MG TAB PO ×4 (08:32→20:47)
[2018-03-30] MEDS: NICOTINE 14 MG/24 HR TRANSDERMAL TD ×2 (09:00)
[2018-03-30] MEDS: ETODOLAC 200 MG CAP PO ×4 (09:49→20:45)
[2018-03-30] MEDS: TIOTROPIUM INHALER/CAPSULE (SPIRIVA) INH ×2 (16:16)
[2018-03-30] MEDS: CYCLOBENZAPRINE 10 MG TAB PO ×2 (20:47)
[2018-03-30] MEDS: ATORVASTATIN 20 MG TAB PO ×2 (20:47)
[2018-03-31] MEDS: CYCLOBENZAPRINE 10 MG TAB PO ×2 (07:23)
[2018-03-31] MEDS: traMADol 50 MG TAB PO ×2 (07:24)
[2018-03-31] MEDS: TIOTROPIUM INHALER/CAPSULE (SPIRIVA) INH ×2 (08:05)
[2018-03-31] MEDS: TAMSULOSIN 0.4 MG CAP PO ×2 (08:27)
[2018-03-31] MEDS: NICOTINE 14 MG/24 HR TRANSDERMAL TD ×2 (08:27)
[2018-03-31] MEDS: ENOXAPARIN 40 MG/0.4 ML SYRINGE (J1650) SC ×2 (08:28)
[2018-03-31 09:26] LABS: HEMATOCRIT 39.4 % (42.0-52.0); HEMOGLOBIN 13.3 g/dl (13.5-17.5); MEAN CORPUSCULAR HEMOGLOBIN 31.6 pg (27.0-33.0); MEAN CORPUSCULAR HGB CONC 33.8 g/dl (32.0-36.5); MEAN CORPUSCULAR VOLUME 93.6 fl (80.0-96.0); PLATELET COUNT, AUTOMATED 199 10^3/uL (150-450); RED BLOOD COUNT 4.21 10^6/uL (4.30-6.10); RED CELL DISTRIBUTION WIDTH 13.2 % (11.5-14.5); WHITE BLOOD COUNT 5.7 10^3/uL (4.0-10.0)
[2018-03-31 09:46] LABS: ANION GAP 5 MEQ/L (8-16); BLOOD UREA NITROGEN 14 MG/DL (7-18); CALCIUM LEVEL 8.3 MG/DL (8.8-10.2); CARBON DIOXIDE LEVEL 30 MEQ/L (21-32); CHLORIDE LEVEL 103 MEQ/L (98-107); CREATININE FOR GFR 0.78 MG/DL (0.70-1.30); GLOMERULAR FILTRATION RATE > 60.0 (>49); GLUCOSE, FASTING 111 MG/DL (70-100); POTASSIUM SERUM 4.1 MEQ/L (3.5-5.1); SODIUM LEVEL 138 MEQ/L (136-145)
[2018-03-31] MEDS: ACETAMINOPHEN TAB 650MG DOSE (2X325MG) PO ×2 (12:15)
[2018-03-31] MEDS: ETODOLAC 200 MG CAP PO ×4 (12:15→19:25)
[2018-03-31] MEDS: ATORVASTATIN 20 MG TAB PO ×2 (19:25)
[2018-04-01 06:45] LABS: HEMATOCRIT 34.6 % (42.0-52.0); HEMOGLOBIN 11.8 g/dl (13.5-17.5); MEAN CORPUSCULAR HEMOGLOBIN 31.6 pg (27.0-33.0); MEAN CORPUSCULAR HGB CONC 34.1 g/dl (32.0-36.5); MEAN CORPUSCULAR VOLUME 92.5 fl (80.0-96.0); PLATELET COUNT, AUTOMATED 165 10^3/uL (150-450); RED BLOOD COUNT 3.74 10^6/uL (4.30-6.10); RED CELL DISTRIBUTION WIDTH 13.1 % (11.5-14.5); WHITE BLOOD COUNT 3.9 10^3/uL (4.0-10.0)
[2018-04-01 06:58] LABS: ANION GAP 8 MEQ/L (8-16); BLOOD UREA NITROGEN 15 MG/DL (7-18); CALCIUM LEVEL 8.4 MG/DL (8.8-10.2); CARBON DIOXIDE LEVEL 28 MEQ/L (21-32); CHLORIDE LEVEL 102 MEQ/L (98-107); CREATININE FOR GFR 0.66 MG/DL (0.70-1.30); GLOMERULAR FILTRATION RATE > 60.0 (>49); GLUCOSE, FASTING 93 MG/DL (70-100); POTASSIUM SERUM 3.9 MEQ/L (3.5-5.1); SODIUM LEVEL 138 MEQ/L (136-145)
[2018-04-01] MEDS: TAMSULOSIN 0.4 MG CAP PO ×2 (09:16)
[2018-04-01] MEDS: ETODOLAC 200 MG CAP PO ×2 (09:16)
[2018-04-01] MEDS: ENOXAPARIN 40 MG/0.4 ML SYRINGE (J1650) SC ×2 (09:17)
[2018-04-01] MEDS: NICOTINE 14 MG/24 HR TRANSDERMAL TD ×2 (09:17)
[2018-04-01] MEDS: CYCLOBENZAPRINE 10 MG TAB PO ×2 (09:19)
[2018-04-01] MEDS: traMADol 50 MG TAB PO ×2 (09:19)
[2018-04-01] MEDS: TIOTROPIUM INHALER/CAPSULE (SPIRIVA) INH ×2 (11:12)
== END 2018-04-01 14:26 | disposition home health service (06) | DRG 71 ==
LOC: M ED 21:20 → M ED INP 21:21 → M MS5PR 03-30 02:25
DX: G93.40 Encephalopathy, unspecified (principal); C79.31 Secondary malignant neoplasm of brain; C34.90 Malignant neoplasm of unspecified part of unspecified bronchus or lung; I10 Essential (primary) hypertension; E78.5 Hyperlipidemia, unspecified; I25.10 Atherosclerotic heart disease of native coronary artery without angina pectoris; E78.00 Pure hypercholesterolemia, unspecified; T66.XXXA Radiation sickness, unspecified, initial encounter; E86.0 Dehydration; J44.9 Chronic obstructive pulmonary disease, unspecified; F41.9 Anxiety disorder, unspecified; N40.0 Benign prostatic hyperplasia without lower urinary tract symptoms; M54.9 Dorsalgia, unspecified; M19.90 Unspecified osteoarthritis, unspecified site; Z87.891 Personal history of nicotine dependence; Z79.82 Long term (current) use of aspirin; Z79.899 Other long term (current) drug therapy; Z88.8 Allergy status to other drugs, medicaments and biological substances; Z92.3 Personal history of irradiation; Z92.21 Personal history of antineoplastic chemotherapy

== ENCOUNTER → 2018-05-20 | Outpatient (CLI) | payer OTHER ==
[~2018-05-20] MED LIST changes: -/IPRAINH INH; -/METO25TAB PO; -ADV100INH INH; -ALBU17IN INH; -ALBU17IN2 INH; -AMLO10TA PO; -ASPI81TA85 PO; -ASPI81TAEC PO; -ATIV1TAB10 PO; -ATOR40TA75 PO; -ATORVASTATIN PO; -ATROVENT INHALER INH; -CEFA2IV2 IV; -CLOP75TA2 PO; -CYCL10TA PO; -CYCL10TA3 PO; -DEXA4TA PO; -ETOD200C31 PO; -ETOD20CA PO; -FISH1000 PO; -FLUC10TA PO; +GASTROGRAFIN SOLUTION 30ML (Q9963) As Ordered; +ISOVUE-370 76% 100ML VIAL (Q9967) As Ordered; -LEVA750T7 PO; -LEVO750T PO; -LISI-542 PO; -LISI10TA4 PO; -LOPR1TAB7 PO; -MEGA40SU PO; -METO100T5 PO; -METO1TAB33 PO; -METO25TA2 PO; -NICO21PAT TD; -ONDA4TAB5 PO; -PLAV1TAB2 PO; -PRED10TA PO; -PRED20TAB PO; -PROC10TA PO; -SPIR1CAP INH; -SPIRIVA INH; -SYMB16INH INH; -TERA1CA PO; -TERA2CAP3 PO; -TYLE325T5 PO; -TYLE500T78 PO; -TYLE650T25 PO; -ULTR50TA PO; -[UNRECOGNIZED DRUG - CODE] INH; -[UNRECOGNIZED DRUG - OTHER] PO
== END ==
LOC: M RAD 07:45
DX: C34.90 Malignant neoplasm of unspecified part of unspecified bronchus or lung (principal); C79.31 Secondary malignant neoplasm of brain; J84.10 Pulmonary fibrosis, unspecified; I71.4 Abdominal aortic aneurysm, without rupture
CPT/HCPCS: Q9963

== ENCOUNTER → 2018-06-22 | Outpatient (CLI) | payer OTHER | LOC: M ONCR 13:13 | DX: C34.32 Malignant neoplasm of lower lobe, left bronchus or lung (principal); C79.31 Secondary malignant neoplasm of brain | CPT/HCPCS: G0463 ==

== ENCOUNTER → 2018-07-18 | Outpatient (REF) | payer OTHER ==
[2018-07-18 14:32] LABS: BASO % 0.7 % (0.0-1.0); EOS # 0.1 10^3/uL (0.0-0.50); EOS % 1.6 % (0.0-3.0); HEMATOCRIT 45.8 % (42.0-52.0); HEMOGLOBIN 15.5 g/dl (13.5-17.5); IMMATURE GRANULOCYTE % 0.4 % (0-3.0); LYMPH # 0.6 10^3/uL (1.5-4.5); LYMPH % 11.1 % (24.0-44.0); MEAN CORPUSCULAR HEMOGLOBIN 31.4 pg (27.0-33.0); MEAN CORPUSCULAR HGB CONC 33.8 g/dl (32.0-36.5); MEAN CORPUSCULAR VOLUME 92.9 fl (80.0-96.0); MONO # 0.6 10^3/uL (0.0-0.8); MONO % 10.4 % (0.0-5.0); NEUTROPHILS # 4.2 10^3/uL (1.8-7.7); NEUTROPHILS % 75.8 % (36.0-66.0); PLATELET COUNT, AUTOMATED 198 10^3/uL (150-450); RED BLOOD COUNT 4.93 10^6/uL (4.30-6.10); RED CELL DISTRIBUTION WIDTH 13.5 % (11.5-14.5); WHITE BLOOD COUNT 5.5 10^3/uL (4.0-10.0)
[2018-07-18 15:03] LABS: ERYTHROCYTE SEDIMENTATION RATE 9 mm/hr (0-20)
[2018-07-18 15:10] LABS: GOLD SPEC TUBE RECIEVED
[2018-07-18 15:37] LABS: ALBUMIN 4.1 GM/DL (3.2-5.2); ALBUMIN/GLOBULIN RATIO 0.98 (1.00-1.93); ALKALINE PHOSPHATASE 87 U/L (45-117); ALT/SGPT 15 U/L (12-78); ANION GAP 11 MEQ/L (8-16); AST/SGOT 17 U/L (7-37); BILIRUBIN,TOTAL 0.5 MG/DL (0.2-1.0); BLOOD UREA NITROGEN 13 MG/DL (7-18); CALCIUM LEVEL 9.1 MG/DL (8.8-10.2); CARBON DIOXIDE LEVEL 27 MEQ/L (21-32); CHLORIDE LEVEL 97 MEQ/L (98-107); CREATININE FOR GFR 0.85 MG/DL (0.70-1.30); GLOMERULAR FILTRATION RATE > 60.0 (>49); GLUCOSE, FASTING 46 MG/DL (70-100); POTASSIUM SERUM 4.1 MEQ/L (3.5-5.1); RHEUMATOID FACTOR QUANT < 10.0 IU/ML (<15.0); SODIUM LEVEL 135 MEQ/L (136-145); TOTAL PROTEIN 8.3 GM/DL (6.4-8.2)
[2018-07-20 09:52] LABS: ALBUMIN 4.76 GM/DL (3.29-5.55); ALBUMIN % 57.3 % (55.8-66.1); ALPHA-1-GLOBULIN % 5.2 % (2.9-4.9); ALPHA-1-GLOBULINS 0.43 GM/DL (0.17-0.41); ALPHA-2-GLOBULINS 1.14 GM/DL (0.42-0.99); ALPHA-2-GLOBULINS % 13.7 % (7.1-11.8); BETA-1-GLOBULINS 0.46 GM/DL (0.28-0.60); BETA-1-GLOBULINS % 5.6 % (4.7-7.2); BETA-2-GLOBULINS 0.49 GM/DL (0.19-0.55); BETA-2-GLOBULINS % 5.9 % (3.2-6.5); GAMMA GLOBULIN % 12.3 % (11.1-18.8); GAMMA GLOBULINS 1.02 GM/DL (0.65-1.58)
[2018-07-21 17:43] LABS: ANTI DOUBLE STRAND-DNA AB <1 IU/mL (0-9); ANTINUCLEAR ANTIBODIES DIRECT Negative (Negative); SJOGREN'S ANTI SS-A <0.2 AI (0.0-0.9); SJOGREN'S ANTI SS-B <0.2 AI (0.0-0.9); VITAMIN B1 LEVEL WHOLE BLOOD 110.6 nmol/L (66.5-200.0); VITAMIN B6,PYRIDOXAL PHOSPHATE 5.3 ug/L (5.3-46.7); VITAMIN E(ALPHA TOCOPHEROL) 11.1 mg/L (9.0-29.0); VITAMIN E(GAMMA TOCOPHEROL) 0.8 mg/L (0.5-4.9)
== END ==
LOC: M LABNEURO 10:55
DX: G31.84 Mild cognitive impairment of uncertain or unknown etiology (principal)
CPT/HCPCS: 82746

== ENCOUNTER 2018-08-03 17:32 | Inpatient (IN) | payer OTHER ==
[2018-08-03] MEDS: NS 1,000 ML IV ×2 (18:09)
[2018-08-03 18:18] LABS: VENOUS BASE EXCESS 2.1 (-2.0-2.0); VENOUS HCO3 27.6 MEQ/L (23.0-27.0); VENOUS O2 SATURATION 88.7 % (60.0-80.0); VENOUS PARTIAL PRESSURE CO2 46.1 mmHg (38.0-50.0); VENOUS PARTIAL PRESSURE O2 54.1 mmHg (30.0-50.0); VENOUS PH 7.395 UNITS (7.330-7.430); VENOUS STANDARD HCO3 26.1 MEQ/L
[2018-08-03 18:23] LABS: BASO % 0.6 % (0.0-1.0); EOS # 0.1 10^3/uL (0.0-0.50); EOS % 1.4 % (0.0-3.0); HEMATOCRIT 38.3 % (42.0-52.0); IMMATURE GRANULOCYTE % 0.5 % (0-3.0); LYMPH # 0.8 10^3/uL (1.5-4.5); LYMPH % 13.4 % (24.0-44.0); MEAN CORPUSCULAR HEMOGLOBIN 31.3 pg (27.0-33.0); MEAN CORPUSCULAR HGB CONC 33.9 g/dl (32.0-36.5); MEAN CORPUSCULAR VOLUME 92.3 fl (80.0-96.0); MONO # 0.7 10^3/uL (0.0-0.8); MONO % 11.5 % (0.0-5.0); NEUTROPHILS # 4.5 10^3/uL (1.8-7.7); NEUTROPHILS % 72.6 % (36.0-66.0); PLATELET COUNT, AUTOMATED 205 10^3/uL (150-450); RED BLOOD COUNT 4.15 10^6/uL (4.30-6.10); RED CELL DISTRIBUTION WIDTH 13.7 % (11.5-14.5); WHITE BLOOD COUNT 6.3 10^3/uL (4.0-10.0)
[2018-08-03 18:35] LABS: AMMONIA 16 uMOL/L (<32)
[2018-08-03 18:47] LABS: ABG BASE EXCESS 1.7 (-2.0-2.0); ABG HCO3 26.1 MEQ/L (22.0-26.0); ABG O2 SATURATION 94.6 % (95.0-99.0); ABG PARTIAL PRESSURE CO2 40.3 mmHg (35.0-45.0); ABG PARTIAL PRESSURE O2 71.3 mmHg (75.0-100.0); ABG STANDARD HCO3 25.9 MEQ/L (22.0-26.0); ABG TOTAL CO2 27.3 MEQ/L (23.0-31.0); ABG pH (ARTERIAL) 7.429 UNITS (7.350-7.450)
[2018-08-03 18:55] LABS: OSMOLALITY SERUM 277 MOSM/KG (280-301)
[2018-08-03 19:03] LABS: ACETAMINOPHEN LEVEL 5.6 UG/ML (10.0-30.0); ALBUMIN 3.7 GM/DL (3.2-5.2); ALBUMIN/GLOBULIN RATIO 1.28 (1.00-1.93); ALKALINE PHOSPHATASE 66 U/L (45-117); ALT/SGPT 11 U/L (12-78); ANION GAP 8 MEQ/L (8-16); AST/SGOT 26 U/L (7-37); BILIRUBIN,DIRECT 0.1 MG/DL (0.0-0.2); BILIRUBIN,TOTAL 0.4 MG/DL (0.2-1.0); BLOOD UREA NITROGEN 22 MG/DL (7-18); CALCIUM LEVEL 8.7 MG/DL (8.8-10.2); CARBON DIOXIDE LEVEL 28 MEQ/L (21-32); CHLORIDE LEVEL 95 MEQ/L (98-107); CPK CREATINE PHOSPHOKINASE 519 U/L (39-308); CREATININE FOR GFR 1.01 MG/DL (0.70-1.30); ETHYL ALCOHOL (ETHANOL) < 0.003 % (0.000-0.010); GLOMERULAR FILTRATION RATE > 60.0 (>49); GLUCOSE, FASTING 96 MG/DL (70-100); MB/CK RELATIVE INDEX 0.62 (< OR =4); POTASSIUM SERUM 4.3 MEQ/L (3.5-5.1); SALICYLATE LEVEL 4.9 MG/DL (5.0-30.0); SODIUM LEVEL 131 MEQ/L (136-145); TOTAL PROTEIN 6.6 GM/DL (6.4-8.2); TROPONIN I < 0.02 NG/ML (< 0.10)
[2018-08-04] MEDS: amLODIPine 5 MG TAB PO ×2 (01:13)
[2018-08-04] MEDS: HEPARIN SOD (PORCINE) 5000 UNITS/ML VIAL SC ×8 (01:13→21:11)
[2018-08-04] MEDS: NS 1,000 ML IV ×4 (01:15→06:49)
[2018-08-04] MEDS: IPRATROPIUM 0.5MG/ALBUTEROL 2.5MG INH SOL UD 3ML (DUONEB)(J7620) NEB ×8 (02:00→20:06)
[2018-08-04 06:22] LABS: KETONE, URINE AUTO RFX NEGATIVE (NEGATIVE); LEUKOCYTE ESTERASE UR AUTO RFX NEGATIVE (NEGATIVE); MUCUS, URINE RFX SMALL (NEGATIVE); NITRITE, URINE AUTO RFX NEGATIVE (NEGATIVE); RBC, URINE AUTO RFX 3 /HPF (0-3); SPECIFIC GRAVITY UR AUTO RFX 1.017 (1.002-1.035); SQUAM EPITHELIAL CELL UR AURFX 0 /HPF (0-6); WBC, URINE AUTO RFX 1 /HPF (0-3)
[2018-08-04 06:35] LABS: AMPHETAMINES LEVEL URINE NEGATIVE (NEGATIVE); BARBITURATES URINE NEGATIVE (NEGATIVE); BENZODIAZEPINES URINE NEGATIVE (NEGATIVE); CANNABINOIDS URINE POSITIVE (NEGATIVE); COCAINE METABOLITE URINE NEGATIVE (NEGATIVE); METHADONE URINE NEGATIVE (NEGATIVE); OPIATES URINE NEGATIVE (NEGATIVE); PHENCYCLIDINE URINE NEGATIVE (NEGATIVE)
[2018-08-04] MEDS: TIOTROPIUM INHALER/CAPSULE (SPIRIVA) INH ×2 (07:56)
[2018-08-04] MEDS: NICOTINE 21MG/24HR 1 EA TRANSDERMAL TD ×4 (08:28→08:31)
[2018-08-04] MEDS: OMEGA-3 1000MG CAPSULE PO ×2 (08:28)
[2018-08-04] MEDS: ATORVASTATIN 20 MG TAB PO ×2 (08:28)
[2018-08-04] MEDS: TAMSULOSIN 0.4 MG CAP PO ×2 (08:29)
[2018-08-04] MEDS: traMADol 50 MG TAB PO ×2 (10:56)
[2018-08-04 17:43] LABS: ANION GAP 4 MEQ/L (8-16); BLOOD UREA NITROGEN 14 MG/DL (7-18); CALCIUM LEVEL 8.4 MG/DL (8.8-10.2); CARBON DIOXIDE LEVEL 29 MEQ/L (21-32); CHLORIDE LEVEL 98 MEQ/L (98-107); CREATININE FOR GFR 0.78 MG/DL (0.70-1.30); GLOMERULAR FILTRATION RATE > 60.0 (>49); GLUCOSE, FASTING 103 MG/DL (70-100); POTASSIUM SERUM 3.7 MEQ/L (3.5-5.1); SODIUM LEVEL 131 MEQ/L (136-145)
[2018-08-05] MEDS: IPRATROPIUM 0.5MG/ALBUTEROL 2.5MG INH SOL UD 3ML (DUONEB)(J7620) NEB ×8 (02:00→20:32)
[2018-08-05] MEDS: HEPARIN SOD (PORCINE) 5000 UNITS/ML VIAL SC ×6 (05:19→21:23)
[2018-08-05 06:28] LABS: HEMATOCRIT 34.6 % (42.0-52.0); HEMOGLOBIN 11.8 g/dl (13.5-17.5); MEAN CORPUSCULAR HEMOGLOBIN 30.9 pg (27.0-33.0); MEAN CORPUSCULAR HGB CONC 34.1 g/dl (32.0-36.5); MEAN CORPUSCULAR VOLUME 90.6 fl (80.0-96.0); PLATELET COUNT, AUTOMATED 180 10^3/uL (150-450); RED BLOOD COUNT 3.82 10^6/uL (4.30-6.10); RED CELL DISTRIBUTION WIDTH 13.2 % (11.5-14.5); WHITE BLOOD COUNT 5.2 10^3/uL (4.0-10.0)
[2018-08-05 06:44] LABS: ANION GAP 5 MEQ/L (8-16); BLOOD UREA NITROGEN 13 MG/DL (7-18); CALCIUM LEVEL 8.2 MG/DL (8.8-10.2); CARBON DIOXIDE LEVEL 29 MEQ/L (21-32); CHLORIDE LEVEL 97 MEQ/L (98-107); CREATININE FOR GFR 0.63 MG/DL (0.70-1.30); GLOMERULAR FILTRATION RATE > 60.0 (>49); GLUCOSE, FASTING 92 MG/DL (70-100); POTASSIUM SERUM 3.9 MEQ/L (3.5-5.1); SODIUM LEVEL 131 MEQ/L (136-145)
[2018-08-05] MEDS: TIOTROPIUM INHALER/CAPSULE (SPIRIVA) INH ×2 (07:52)
[2018-08-05] MEDS: NICOTINE 21MG/24HR 1 EA TRANSDERMAL TD ×2 (14:08)
[2018-08-05] MEDS: OMEGA-3 1000MG CAPSULE PO ×2 (14:09)
[2018-08-05] MEDS: ATORVASTATIN 20 MG TAB PO ×2 (14:10)
[2018-08-05] MEDS: traMADol 50 MG TAB PO ×2 (14:10)
[2018-08-05] MEDS: TAMSULOSIN 0.4 MG CAP PO ×2 (14:10)
[2018-08-06] MEDS: IPRATROPIUM 0.5MG/ALBUTEROL 2.5MG INH SOL UD 3ML (DUONEB)(J7620) NEB ×8 (00:34→20:26)
[2018-08-06] MEDS: HEPARIN SOD (PORCINE) 5000 UNITS/ML VIAL SC ×6 (05:02→23:37)
[2018-08-06 06:11] LABS: HEMATOCRIT 36.8 % (42.0-52.0); HEMOGLOBIN 12.5 g/dl (13.5-17.5); MEAN CORPUSCULAR VOLUME 91.3 fl (80.0-96.0); PLATELET COUNT, AUTOMATED 187 10^3/uL (150-450); RED BLOOD COUNT 4.03 10^6/uL (4.30-6.10); RED CELL DISTRIBUTION WIDTH 13.4 % (11.5-14.5); WHITE BLOOD COUNT 5.3 10^3/uL (4.0-10.0)
[2018-08-06 06:28] LABS: ANION GAP 6 MEQ/L (8-16); BLOOD UREA NITROGEN 15 MG/DL (7-18); CALCIUM LEVEL 8.4 MG/DL (8.8-10.2); CARBON DIOXIDE LEVEL 29 MEQ/L (21-32); CHLORIDE LEVEL 98 MEQ/L (98-107); CREATININE FOR GFR 0.72 MG/DL (0.70-1.30); GLOMERULAR FILTRATION RATE > 60.0 (>49); GLUCOSE, FASTING 100 MG/DL (70-100); POTASSIUM SERUM 3.9 MEQ/L (3.5-5.1); SODIUM LEVEL 133 MEQ/L (136-145)
[2018-08-06] MEDS: TIOTROPIUM INHALER/CAPSULE (SPIRIVA) INH ×2 (07:22)
[2018-08-06] MEDS: OMEGA-3 1000MG CAPSULE PO ×2 (09:00)
[2018-08-06] MEDS: ATORVASTATIN 20 MG TAB PO ×2 (10:55)
[2018-08-06] MEDS: NICOTINE 21MG/24HR 1 EA TRANSDERMAL TD ×2 (10:55)
[2018-08-06] MEDS: TAMSULOSIN 0.4 MG CAP PO ×2 (10:55)
[2018-08-06] MEDS: traMADol 50 MG TAB PO ×2 (11:03)
[2018-08-07] MEDS: IPRATROPIUM 0.5MG/ALBUTEROL 2.5MG INH SOL UD 3ML (DUONEB)(J7620) NEB ×8 (01:35→19:54)
[2018-08-07 06:19] LABS: HEMATOCRIT 37.4 % (42.0-52.0); HEMOGLOBIN 12.5 g/dl (13.5-17.5); MEAN CORPUSCULAR HEMOGLOBIN 30.9 pg (27.0-33.0); MEAN CORPUSCULAR HGB CONC 33.4 g/dl (32.0-36.5); MEAN CORPUSCULAR VOLUME 92.3 fl (80.0-96.0); PLATELET COUNT, AUTOMATED 189 10^3/uL (150-450); RED BLOOD COUNT 4.05 10^6/uL (4.30-6.10); RED CELL DISTRIBUTION WIDTH 13.7 % (11.5-14.5)
[2018-08-07 06:46] LABS: ANION GAP 4 MEQ/L (8-16); BLOOD UREA NITROGEN 17 MG/DL (7-18); CALCIUM LEVEL 8.6 MG/DL (8.8-10.2); CARBON DIOXIDE LEVEL 30 MEQ/L (21-32); CHLORIDE LEVEL 99 MEQ/L (98-107); GLOMERULAR FILTRATION RATE > 60.0 (>49); GLUCOSE, FASTING 101 MG/DL (70-100); POTASSIUM SERUM 4.2 MEQ/L (3.5-5.1); SODIUM LEVEL 133 MEQ/L (136-145)
[2018-08-07] MEDS: HEPARIN SOD (PORCINE) 5000 UNITS/ML VIAL SC ×6 (06:52→21:33)
[2018-08-07] MEDS: TIOTROPIUM INHALER/CAPSULE (SPIRIVA) INH ×2 (08:42)
[2018-08-07] MEDS: ATORVASTATIN 20 MG TAB PO ×2 (09:24)
[2018-08-07] MEDS: NICOTINE 21MG/24HR 1 EA TRANSDERMAL TD ×2 (09:24)
[2018-08-07] MEDS: TAMSULOSIN 0.4 MG CAP PO ×2 (09:24)
[2018-08-07] MEDS: OMEGA-3 1000MG CAPSULE PO ×2 (09:25)
[2018-08-07] MEDS: traMADol 50 MG TAB PO ×2 (09:25)
[2018-08-08] MEDS: IPRATROPIUM 0.5MG/ALBUTEROL 2.5MG INH SOL UD 3ML (DUONEB)(J7620) NEB ×8 (01:21→20:27)
[2018-08-08] MEDS: HEPARIN SOD (PORCINE) 5000 UNITS/ML VIAL SC ×6 (05:27→21:22)
[2018-08-08 06:09] LABS: HEMATOCRIT 36.7 % (42.0-52.0); HEMOGLOBIN 12.5 g/dl (13.5-17.5); MEAN CORPUSCULAR HEMOGLOBIN 31.3 pg (27.0-33.0); MEAN CORPUSCULAR HGB CONC 34.1 g/dl (32.0-36.5); MEAN CORPUSCULAR VOLUME 91.8 fl (80.0-96.0); PLATELET COUNT, AUTOMATED 198 10^3/uL (150-450); RED CELL DISTRIBUTION WIDTH 13.6 % (11.5-14.5); WHITE BLOOD COUNT 5.8 10^3/uL (4.0-10.0)
[2018-08-08 06:33] LABS: ANION GAP 4 MEQ/L (8-16); BLOOD UREA NITROGEN 15 MG/DL (7-18); CALCIUM LEVEL 8.6 MG/DL (8.8-10.2); CARBON DIOXIDE LEVEL 31 MEQ/L (21-32); CHLORIDE LEVEL 96 MEQ/L (98-107); CREATININE FOR GFR 0.72 MG/DL (0.70-1.30); GLOMERULAR FILTRATION RATE > 60.0 (>49); GLUCOSE, FASTING 97 MG/DL (70-100); POTASSIUM SERUM 4.1 MEQ/L (3.5-5.1); SODIUM LEVEL 131 MEQ/L (136-145)
[2018-08-08] MEDS: TIOTROPIUM INHALER/CAPSULE (SPIRIVA) INH ×2 (07:41)
[2018-08-08] MEDS: ATORVASTATIN 20 MG TAB PO ×2 (10:20)
[2018-08-08] MEDS: TAMSULOSIN 0.4 MG CAP PO ×2 (10:20)
[2018-08-08] MEDS: OMEGA-3 1000MG CAPSULE PO ×2 (10:20)
[2018-08-08] MEDS: NICOTINE 21MG/24HR 1 EA TRANSDERMAL TD ×2 (10:21)
[2018-08-09] MEDS: IPRATROPIUM 0.5MG/ALBUTEROL 2.5MG INH SOL UD 3ML (DUONEB)(J7620) NEB ×12 (01:12→20:00)
[2018-08-09] MEDS: HEPARIN SOD (PORCINE) 5000 UNITS/ML VIAL SC ×6 (05:08→21:11)
[2018-08-09 07:17] LABS: MEAN CORPUSCULAR HEMOGLOBIN 30.9 pg (27.0-33.0); MEAN CORPUSCULAR HGB CONC 32.5 g/dl (32.0-36.5); PLATELET COUNT, AUTOMATED 202 10^3/uL (150-450); RED BLOOD COUNT 4.21 10^6/uL (4.30-6.10); RED CELL DISTRIBUTION WIDTH 13.7 % (11.5-14.5); WHITE BLOOD COUNT 5.5 10^3/uL (4.0-10.0)
[2018-08-09 07:38] LABS: ANION GAP 3 MEQ/L (8-16); BLOOD UREA NITROGEN 18 MG/DL (7-18); CALCIUM LEVEL 8.9 MG/DL (8.8-10.2); CARBON DIOXIDE LEVEL 32 MEQ/L (21-32); CHLORIDE LEVEL 99 MEQ/L (98-107); CREATININE FOR GFR 0.89 MG/DL (0.70-1.30); GLOMERULAR FILTRATION RATE > 60.0 (>49); GLUCOSE, FASTING 96 MG/DL (70-100); POTASSIUM SERUM 4.9 MEQ/L (3.5-5.1); SODIUM LEVEL 134 MEQ/L (136-145)
[2018-08-09] MEDS: TIOTROPIUM INHALER/CAPSULE (SPIRIVA) INH ×2 (07:58)
[2018-08-09] MEDS: OMEGA-3 1000MG CAPSULE PO ×2 (09:00)
[2018-08-09] MEDS: ATORVASTATIN 20 MG TAB PO ×2 (09:00)
[2018-08-09] MEDS: NICOTINE 21MG/24HR 1 EA TRANSDERMAL TD ×2 (09:00)
[2018-08-09] MEDS: TAMSULOSIN 0.4 MG CAP PO ×2 (09:00)
[2018-08-09] MEDS: CYCLOBENZAPRINE 10 MG TAB PO ×2 (11:26)
[2018-08-09] MEDS: traMADol 50 MG TAB PO ×2 (11:26)
[2018-08-10] MEDS: traMADol 50 MG TAB PO ×2 (00:09)
[2018-08-10] MEDS: IPRATROPIUM 0.5MG/ALBUTEROL 2.5MG INH SOL UD 3ML (DUONEB)(J7620) NEB ×10 (02:00→20:00)
[2018-08-10] MEDS: HEPARIN SOD (PORCINE) 5000 UNITS/ML VIAL SC ×6 (05:14→23:05)
[2018-08-10] MEDS: TIOTROPIUM INHALER/CAPSULE (SPIRIVA) INH ×2 (07:55)
[2018-08-10] MEDS: TAMSULOSIN 0.4 MG CAP PO ×2 (09:52)
[2018-08-10] MEDS: OMEGA-3 1000MG CAPSULE PO ×2 (09:53)
[2018-08-10] MEDS: ATORVASTATIN 20 MG TAB PO ×2 (09:53)
[2018-08-10] MEDS: NICOTINE 21MG/24HR 1 EA TRANSDERMAL TD ×2 (09:54)
[2018-08-11] MEDS: HEPARIN SOD (PORCINE) 5000 UNITS/ML VIAL SC ×6 (06:38→22:25)
[2018-08-11] MEDS: IPRATROPIUM 0.5MG/ALBUTEROL 2.5MG INH SOL UD 3ML (DUONEB)(J7620) NEB ×6 (07:47→20:17)
[2018-08-11] MEDS: TIOTROPIUM INHALER/CAPSULE (SPIRIVA) INH ×2 (07:50)
[2018-08-11] MEDS: NICOTINE 21MG/24HR 1 EA TRANSDERMAL TD ×2 (09:00)
[2018-08-11] MEDS: OMEGA-3 1000MG CAPSULE PO ×2 (09:00)
[2018-08-11] MEDS: ATORVASTATIN 20 MG TAB PO ×2 (09:00)
[2018-08-11] MEDS: TAMSULOSIN 0.4 MG CAP PO ×2 (09:00)
[2018-08-12] MEDS: ACETAMINOPHEN TAB 650MG DOSE (2X325MG) PO ×2 (01:08)
[2018-08-12] MEDS: IPRATROPIUM 0.5MG/ALBUTEROL 2.5MG INH SOL UD 3ML (DUONEB)(J7620) NEB ×4 (02:00→07:32)
[2018-08-12] MEDS: HEPARIN SOD (PORCINE) 5000 UNITS/ML VIAL SC ×2 (05:50)
[2018-08-12] MEDS: TIOTROPIUM INHALER/CAPSULE (SPIRIVA) INH ×2 (07:32)
[2018-08-12] MEDS: OMEGA-3 1000MG CAPSULE PO ×2 (10:40)
[2018-08-12] MEDS: TAMSULOSIN 0.4 MG CAP PO ×2 (10:40)
[2018-08-12] MEDS: ATORVASTATIN 20 MG TAB PO ×2 (10:40)
[2018-08-12] MEDS: traMADol 50 MG TAB PO ×2 (10:41)
[2018-08-12] MEDS: NICOTINE 21MG/24HR 1 EA TRANSDERMAL TD ×2 (10:41)
== END 2018-08-12 12:30 | DRG 52 ==
LOC: M MS4PR 08-04 00:30 → M ED 17:32 → M MSPAV 08-04 16:47 → M ED INP 20:49
DX: G93.41 Metabolic encephalopathy (principal); C79.31 Secondary malignant neoplasm of brain; C34.90 Malignant neoplasm of unspecified part of unspecified bronchus or lung; E87.1 Hypo-osmolality and hyponatremia; I10 Essential (primary) hypertension; E78.5 Hyperlipidemia, unspecified; I25.10 Atherosclerotic heart disease of native coronary artery without angina pectoris; J44.9 Chronic obstructive pulmonary disease, unspecified; F41.9 Anxiety disorder, unspecified; N40.0 Benign prostatic hyperplasia without lower urinary tract symptoms; M54.9 Dorsalgia, unspecified; F17.210 Nicotine dependence, cigarettes, uncomplicated; Z79.899 Other long term (current) drug therapy; Z88.8 Allergy status to other drugs, medicaments and biological substances; Z92.3 Personal history of irradiation

== ENCOUNTER → 2018-12-19 | Outpatient (CLI) | payer OTHER ==
[~2018-12-19] MED LIST changes: +/IPRAINH INH; +/METO25TAB PO; +ADV100INH INH; +ALBU17IN INH; +ALBU17IN2 INH; +ALBU83IN INH; +AMLO10TA PO; +ASPI81CH PO; +ASPI81TA85 PO; +ASPI81TAEC PO; +ATIV1TAB10 PO; +ATOR40TA75 PO; +ATOR80TA59 PO; +ATORVASTATIN PO; +ATROVENT INHALER INH; +CEFA2IV2 IV; +CLOP75TA2 PO; +COUM1TAB17 PO; +CYCL10TA PO; +CYCL10TA3 PO; +DEXA4TA PO; +DONETAB5 PO; +ETOD200C31 PO; +ETOD20CA PO; +FISH1000 PO; +FLOM0.4C39 PO; +FLUC10TA PO; -GASTROGRAFIN SOLUTION 30ML (Q9963) As Ordered; +INCR1INH IN; -ISOVUE-370 76% 100ML VIAL (Q9967) As Ordered; +LEVA750T7 PO; +LEVO750T PO; +LIDO5OIN28 TOP; +LISI-542 PO; +LISI10TA4 PO; +LOPR1TAB7 PO; +MEGA40SU PO; +METO100T5 PO; +METO1TAB33 PO; +METO1TAB87 PO; +METO25TA2 PO; +NICO21PAT TD; +ONDA4TAB5 PO; +PLAV1TAB2 PO; +PRED10TA PO; +PRED20TAB PO; +PROC10TA4 PO; +SPIR1CAP INH; +SPIRIVA INH; +SYMB16INH INH; +TERA1CA PO; +TERA2CAP3 PO; +TRAM50TA2 PO; +TYLE325T5 PO; +TYLE500T78 PO; +TYLE650T25 PO; +ULTR50TA PO; +VENTAER INH; +[UNRECOGNIZED DRUG - CODE] INH; +[UNRECOGNIZED DRUG - OTHER] PO
--- NOTE | 2018-12-22 14:40 | RADONC ---
RADIATION ONCOLOGY FOLLOWUP NOTE DATE: 12/21/2018 CHART NUMBER: [id number] DIAGNOSIS: Small cell lung carcinoma. STAGE: Extensive. ECOG PERFORMANCE STATUS: 3 FOLLOWUP NOTE: Mr. Neves is a very pleasant, 63-year-old white male with the diagnosis of small-cell lung carcinoma with recurrent brain metastasis, who is presenting to us today for routine followup visit now 1 year and 7 months post completion of a second course of radiation therapy to the whole brain. Indeed the patient presents today now as a resident of a senior living. He reports that he is doing well with no new pains or problems at this time. PHYSICAL EXAMINATION: The patient is a chronically ill-appearing male, who is presenting in a wheelchair. HEENT: Exam is normocephalic, atraumatic. Extraocular movements are intact. My physical exam was otherwise limited at this point. ASSESSMENT: The patient is continuing his close followup with his medical oncologist, Dr. Stephanie Ceballos. In light of this, I am discharging him from our followup except on a p.r.n. basis. I made clear that we would be unable to retreat the brain should he develop recurrence of metastasis. He has already had radiation twice. He is having no bone pain or other clinical indication of metastatic disease at this point. His x-ray studies are being ordered through medical oncology. cc: MD Britney Resendiz MD
== END ==
LOC: M ONCR 07:36
PROVIDERS: ATTEND Radiology Radiation Oncology
DX: Z08 Encounter for follow-up examination after completed treatment for malignant neoplasm (principal); C34.32 Malignant neoplasm of lower lobe, left bronchus or lung

== ENCOUNTER → 2019-01-31 | Outpatient (CLI) | payer OTHER ==
[~2019-01-31] MED LIST changes: -/IPRAINH INH; -/METO25TAB PO; +APAP325T4 PO; -ASPI81CH PO; +ASPI81CH49 PO; +ATRO0.063 INH; -ETOD20CA PO; +NICO21DI3 TD; +PRED-351 PO; -PRED10TA PO; -TERA1CA PO; +TERA1CAP46 PO; +[UNRECOGNIZED DRUG - CODE] INH; -[UNRECOGNIZED DRUG - CODE] INH
--- NOTE | 2019-01-31 14:43 | REP ---
PET/CT: HISTORY: Staging lung cancer. Small cell lung carcinoma. Status post radiation therapy. COMPARISONS: Comparison PET-CT study, December 02, 2016. There is also a prior PET-CT study reviewed from June 10, 2016. Comparison CT study of the chest is from May 20, 2018. TECHNIQUE: 48 minutes following the intravenous injection of a 9.25 mCi dose of F-18 FDG, three-dimensional PET scintigraphy is acquired from the skull base to the proximal thighs. Triplanar noncontrast CT scanning is acquired through the same anatomic range for attenuation correction, and image registration with scan parameters optimized to minimize radiation exposure to the patient. PET scintigraphy and CT datasets were fused and displayed on a workstation with multiplanar and projection display capability. PET/CT FINDINGS: Right-sided [id number] catheter is noted in place. There is no abnormal hypermetabolic uptake in the head and neck soft tissues. No abnormal uptake is seen within the thorax. No abnormal pulmonary parenchymal, hilar, or mediastinal hypermetabolic uptake is seen. A small hiatal hernia is noted. No abnormal adrenal or hepatic hypermetabolic uptake is appreciated. No abnormal uptake is seen in the abdomen or pelvis. There is a 3.8 cm infrarenal abdominal aortic aneurysm again noted. There is a pin in the left hip. IMPRESSION: Negative PET scintigraphy. The previously noted foci of hypermetabolic uptake have resolved. No new abnormal hypermetabolic uptake is seen. Electronically Signed by Enrique iGllespie MD 01/31/2019 10:31 P
== END ==
LOC: M PLARAD 09:18
PROVIDERS: ATTEND Internal Medicine Hematology & Oncology
DX: C34.90 Malignant neoplasm of unspecified part of unspecified bronchus or lung (principal); C79.31 Secondary malignant neoplasm of brain; Z92.3 Personal history of irradiation
CPT/HCPCS: 78815; A9552

== ENCOUNTER → 2019-05-22 | Outpatient (CLI) | payer OTHER ==
[~2019-05-22] MED LIST changes: +GASTROGRAFIN SOLUTION 30ML (Q9963) As Ordered ONE; +ISOVUE-370 76% 100ML VIAL (Q9967) As Ordered ONE
--- NOTE | 2019-05-23 18:06 | REP ---
Clinical: Lung cancer restaging. Technique: Axial contrast enhanced images from the thoracic inlet to the upper abdomen with coronal and sagittal re-formations using 100 ml Isovue 370 intravenous contrast material. Comparison: 05/20/2018. Findings: Diffuse advanced COPD/emphysematous changes with scattered elements of fibrosis and scarring primarily involving the bilateral bases (left greater than right) remain relatively stable. No obvious focal consolidation, nodule or mass lesion appreciated. No effusion. No pneumothorax. Tracheobronchial tree is relatively patent. No significant adenopathy. Atherosclerotic changes to the thoracic aorta and coronary arteries noted without aortic aneurysm or dissection. No cardiomegaly or pericardial effusion. Musculoskeletal structures demonstrate old rib fractures without evidence for acute osseous abnormality. Limited upper abdomen demonstrates normal bilateral adrenal glands. Impression: 1. Advanced COPD/emphysematous changes with scattered fibrosis and scarring. 2. No obvious acute mediastinal or pleuroparenchymal process otherwise appreciated. Electronically Signed by Weston Reinoso MD 05/23/2019 05:58 P
--- NOTE | 2019-05-23 18:11 | REP ---
Clinical: Restaging small cell lung cancer. Technique: Axial contrast enhanced images from the lung bases to the pubic symphysis using oral (per protocol) and 100 ml Isovue 370 intravenous contrast material with precontrast and delayed images of the abdomen as well as coronal and sagittal re-formations. Comparison: 05/20/2018. Findings: Liver, spleen, pancreas, bilateral adrenal glands and kidneys are normal. Cholelithiasis noted without evidence for acute cholecystitis. The enteric system is without obstruction or acute inflammatory process. Normal terminal ileum and appendix are identified in the right lower quadrant. Scattered sigmoid diverticula noted without acute diverticulitis. Pelvis demonstrates normal bladder and age appropriate prostate/seminal vesicles. No ascites. No free air. No adenopathy. Atherosclerotic changes to the aorta and vasculature noted along with mild chronic-appearing infrarenal abdominal aortic aneurysm which measures up to approximately 3.9 cm maximal diameter. No focal aggressive osseous lesion noted. Impression: 1. No obvious adenopathy, effusion, or metastatic disease/mass lesion appreciated. 2. Scattered colonic diverticula without acute diverticulitis. 3. Atherosclerotic disease with mild infrarenal aortic aneurysm measuring 3.9 cm maximal diameter. Electronically Signed by Weston Reinoso MD 05/23/2019 06:03 P
== END ==
LOC: M RAD 12:43
PROVIDERS: ATTEND Internal Medicine Hematology & Oncology
DX: C34.90 Malignant neoplasm of unspecified part of unspecified bronchus or lung (principal)
CPT/HCPCS: 71260; 74178; Q9963; Q9967

== ENCOUNTER → 2019-05-25 | Outpatient (CLI) | payer OTHER ==
[~2019-05-25] MED LIST changes: +GABA-843 PO; -GASTROGRAFIN SOLUTION 30ML (Q9963) As Ordered ONE; -ISOVUE-370 76% 100ML VIAL (Q9967) As Ordered ONE; +LASI40TA9 PO
--- NOTE | 2019-05-25 16:10 | REP ---
MRI of the brain without and with contrast Indication: Small cell lung cancer, restaging brain metastases. Comparison: MRI brain of 09/28/2018 and 10/29/2016. Technique: MRI of the brain was performed without contrast utilizing sagittal T1 FLAIR, and axial DWI, T1, T2, and FLAIR precontrast imaging. Following the uneventful intravenous administration of 19 ml of ProHance, axial and coronal T1 FLAIR post contrast imaging was performed. Repeat axial FLAIR and postcontrast axial T1 imaging was performed secondary to motion artifact. Findings: There is motion artifact degradation with degrades image quality and reduces the sensitivity for detection of small lesions, despite repeated sequences. There is severe motion artifact limiting the postcontrast sequences. Within this limitation, there is no gross enhancing lesion to suggest metastasis. There is no restricted diffusion to suggest acute ischemia or infarction. There is similar confluent T2 FLAIR hyperintensity throughout the periventricular subcortical white matter, likely related to prior therapy. There is a linear tract through the right frontal white matter which likely corresponds to the developmental venous anomaly, better seen on the prior examination. There is a similar focus of encephalomalacia with marginal gliosis within the right parasagittal parietal cortex. There is no hydrocephalus. There is no mass effect. There is no midline shift or basal cistern effacement. The visualized flow voids are preserved. 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 The visualized paranasal sinuses and mastoid air cells are clear. Impression: Examination extremely limited secondary to motion artifact despite repeated sequences. Within this limitation, no new gross enhancing lesion to suggest new brain metastasis. Similar post-treatment appearance of the white matter. Electronically Signed by Sander Quiñonez MD 05/25/2019 04:01 P
== END ==
LOC: M RAD 13:06
PROVIDERS: ATTEND Internal Medicine Hematology & Oncology
DX: C79.31 Secondary malignant neoplasm of brain (principal)

== ENCOUNTER → 2019-12-15 | Outpatient (CLI) | payer OTHER ==
[~2019-12-15] MED LIST changes: +GASTROGRAFIN SOLUTION 30ML (Q9963) As Ordered ONE; +ISOVUE-370 76% 100ML VIAL (Q9967) As Ordered ONE; +ONDA-83 PO; -ONDA4TAB5 PO
--- NOTE | 2019-12-15 14:52 | REP ---
CT CHEST WITH IV CONTRAST: TECHNIQUE: Axial contrast enhanced images from the thoracic inlet to the upper abdomen using 100 mL Isovue 370 intravenous contrast material with multiplanar reformations. COMPARISON: 05/22/2019. Once again there is diffuse fibrotic change bilaterally. No suspicious nodular opacity is seen bilaterally. There is a tiny calcified granuloma in the lingula. There is no evidence of mediastinal, hilar, or chest wall lymphadenopathy. There is no pleural or pericardial effusion. There are atherosclerotic calcifications of the thoracic aorta without aneurysm. There are degenerative changes of the spine. IMPRESSION: Stable chronic fibrotic changes. No evidence of pulmonary nodule or adenopathy. Electronically Signed by Shaw Perez MD 12/15/2019 03:27 P
--- NOTE | 2019-12-15 14:57 | REP ---
CT ABDOMEN AND PELVIS WITH ORAL AND IV CONTRAST, CT ABDOMEN WITHOUT IV CONTRAST: CT abdomen and pelvis performed following the intravenous administration of 100 mL of Isovue 370, with oral contrast also administered. In addition, CT abdomen was performed without IV contrast. Sagittal and coronal reconstruction images are performed. Comparison is made with a prior study of 05/22/2019. Thel liver, spleen, adrenals, pancreas and kidneys demonstrate no mass. There is no hydronephrosis bilaterally. There is mild aneurysmal dilatation of the distal abdominal aorta, maximum AP diameter of the distal abdominal aorta 3.8 cm, unchanged since the prior exam. Moderate atherosclerotic plaque is seen. There is no adenopathy in the abdomen or pelvis. No free air or free fluid is seen. There is no bowel wall thickening. There is a small hiatal hernia. The appendix is normal. There is sigmoid diverticulosis and several left colonic diverticula are present. There is no diverticulitis. No pelvic mass is seen. Urinary bladder is mildly distended and grossly unremarkable. There is metallic internal fixation of the proximal left femur. There are degenerative changes of the spine. A tiny subcentimeter gallstone is seen in the dependent portion of the gallbladder. IMPRESSION: No adenopathy or mass in the abdomen or pelvis. Tiny gallstone in the dependent portion of the gallbladder. Mild aneurysmal dilatation of the distal abdominal aorta 3.8 cm in maximum AP dimension, unchanged. Left colonic and sigmoid diverticulosis without acute diverticulitis. Electronically Signed by Shaw Perez MD 12/15/2019 03:28 P
== END ==
LOC: M RAD 11:30
PROVIDERS: ATTEND Internal Medicine Hematology & Oncology
DX: K80.20 Calculus of gallbladder without cholecystitis without obstruction (principal); I71.4 Abdominal aortic aneurysm, without rupture; K57.30 Diverticulosis of large intestine without perforation or abscess without bleeding; C34.90 Malignant neoplasm of unspecified part of unspecified bronchus or lung; C79.31 Secondary malignant neoplasm of brain
CPT/HCPCS: 71260; 74178; Q9963; Q9967

== ENCOUNTER → 2019-12-25 | Outpatient (CLI) | payer OTHER ==
[~2019-12-25] MED LIST changes: -GASTROGRAFIN SOLUTION 30ML (Q9963) As Ordered ONE; -ISOVUE-370 76% 100ML VIAL (Q9967) As Ordered ONE; +PROHANCE 279.3MG/ML 15ML VIAL (A9576) As Ordered ONE; +PROHANCE 279.3MG/ML 5ML VIAL (A9576) As Ordered ONE
--- NOTE | 2019-12-25 11:11 | REP ---
MRI BRAIN WITHOUT AND WITH IV GADOLINIUM: HISTORY: Lung carcinoma. Comparison MRI study is from May 25, 2019. TECHNIQUE: Axial and sagittal imaging planes are utilized for T1 and T2-weighted scans. Sequences include spin-echo, fast spin echo, FLAIR, and diffusion weighted sequences. Gadolinium enhancement dose is a 20 mL of intravenous ProHance. MRI FINDINGS: No bony calvarial lesion is seen. Craniocervical junction and upper cervical cord are normal in appearance. There is mild motion artifact on some of the sequences. There is no intraorbital abnormality or MR evidence of significant paranasal sinus disease. There is generalized atrophy and extensive small vessel changes are noted in the periventricular white matter on T2-weighted scans. Diffusion weighted scans show no evidence of restricted diffusion. A prominent foramen magnum is again noted as a variant. There is no evidence of intracranial mass lesion. Postcontrast images show enhancement in normal vascular structures. No abnormal gadolinium enhancement is appreciated. There is mild thin peripheral contrast enhancement around an old focus of encephalomalacia in the right pericentral parietal lobe. This is unchanged from multiple prior studies except that the contrast enhancement is new. The lesion is not changed in size. There is a small developmental venous anomaly in the right frontal lobe again noted. No other abnormal intracranial enhancement is appreciated. IMPRESSION: There is a thin rim of contrast enhancement around the previously noted focus of encephalomalacia in the right posterior parietal lobe. The lesion is unchanged in size from multiple prior studies including CT study from August 03, 2018. Peripheral pattern of contrast enhancement in the lesion is new. No evidence of new intracranial lesion. Electronically Signed by Enrique Gillespie MD 12/25/2019 03:36 P
== END ==
LOC: M RAD 08:32
PROVIDERS: ATTEND Internal Medicine Hematology & Oncology
DX: C34.90 Malignant neoplasm of unspecified part of unspecified bronchus or lung (principal)
CPT/HCPCS: 70553; A9576

== ENCOUNTER 2020-04-17 16:04 | Inpatient (IN) | payer OTHER ==
[~2020-04-17] VITALS: Ht 182.9 cm; Wt 90.7 kg
[~2020-04-17 16:04] MED LIST changes: +ASPI81TA86 PO; +CYCL-707 PO; -CYCL10TA PO; -PROHANCE 279.3MG/ML 15ML VIAL (A9576) As Ordered ONE; -PROHANCE 279.3MG/ML 5ML VIAL (A9576) As Ordered ONE
[2020-04-17] MEDS ORDERED: HYDR-3713 PO (17:22)
--- NOTE | 2020-04-17 17:59 | REP ---
Right hip: Two views. History: Rule out fracture. [facility] radiographs January 06, 2018. Findings: AP and frog-leg views of the right hip demonstrate a slightly impacted cervical neck fracture. This is nondisplaced. No bony destructive lesion is seen. Impression: Nondisplaced cervical neck fracture with slight impaction. Electronically Signed by Enrique Gillespie MD 04/17/2020 05:50 P
--- NOTE | 2020-04-17 18:00 | REP ---
Chest x-ray: Two views. History: Rule out fractured hip. Comparison chest x-ray August 03, 2018. Findings: A right internal jugular central venous [id number] catheter is again noted. There is a linear density in the left base consistent with plate-like atelectasis. Lung shaver are otherwise clear. Pleural angles are sharp. Mediastinum is not widened. Heart size is normal. Impression: Mild linear plate-like atelectasis left base. Otherwise no acute disease. Electronically Signed by Enrique Gillespie MD 04/17/2020 05:52 P
[2020-04-17 18:11] LABS: BASO % 0.5 % (0.0-1.0); EOS # 0.3 10^3/uL (0.0-0.5); EOS % 3.8 % (0.0-3.0); HEMATOCRIT 36.6 % (42.0-52.0); HEMOGLOBIN 11.8 g/dl (13.5-17.5); LYMPH # 0.7 10^3/uL (1.5-5.0); LYMPH % 10.4 % (24.0-44.0); MEAN CORPUSCULAR HEMOGLOBIN 31.3 pg (27.0-33.0); MEAN CORPUSCULAR HGB CONC 32.2 g/dl (32.0-36.5); MEAN CORPUSCULAR VOLUME 97.1 fl (80.0-96.0); MONO # 0.8 10^3/uL (0.0-0.8); MONO % 12.8 % (0.0-5.0); NEUTROPHILS # 4.7 10^3/uL (1.5-8.5); NEUTROPHILS % 72.2 % (36.0-66.0); PLATELET COUNT, AUTOMATED 168 10^3/uL (150-450); RED BLOOD COUNT 3.77 10^6/uL (4.30-6.10); WHITE BLOOD COUNT 6.6 10^3/uL (4.0-10.0)
[2020-04-17 18:34] LABS: BLOOD UREA NITROGEN 19 MG/DL (7-18); CALCIUM LEVEL 8.5 MG/DL (8.8-10.2); CARBON DIOXIDE LEVEL 35 MEQ/L (21-32); CHLORIDE LEVEL 100 MEQ/L (98-107); GLOMERULAR FILTRATION RATE > 60.0 (>49); GLUCOSE, FASTING 100 MG/DL (70-100); POTASSIUM SERUM 3.7 MEQ/L (3.5-5.1); SODIUM LEVEL 140 MEQ/L (136-145)
[2020-04-17] MEDS ORDERED: NORCO, ANEXSIA 5/325MG TABLET (HYDROcodone/ACETAMINOPHEN) PO PRN (19:30)
[2020-04-17] MEDS ORDERED: ALBUTEROL 90 MCG/ACT 8GM HFA INHALER INH PRN (19:30)
[2020-04-17] MEDS: GABAPENTIN 300 MG CAP PO SCH (20:50)
[2020-04-17] MEDS: ACETAMINOPHEN TAB 650MG DOSE (2X325MG) PO SCH (20:51)
[2020-04-17] MEDS ORDERED: HEPARIN SOD (PORCINE) 5000UNITS/ML 1ML VIAL/SYRINGE SQ SCH (21:00)
--- NOTE | 2020-04-17 22:05 | HPEPDOC ---
General Date of Admission 04/17/2020 Date of Service: Apr 17, 2020 Attending Physician: TRIP VIVEROS MD Chief Complaint The patient is a 64-year-old male admitted with a reason for visit of Hip Fx. 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 Velásquez who recently was noted to not have recurrence on 11/2019 staging scans with plan now for conservative treatment given other comorbid conditions, CAD, COPD, prior smoker, HTN, HLD, OA, history of L hip fracture 2/2 mechanical fall s/p repair in 2018, BPH, anxiety, chronic back pain, is a mostly wheelchair bound, 2 person assist for mobility, [facility] detention resident who recent suffered a mechanical fall on 04/12/2020 and has been complaining of R hip pain since prompting the detention to do XR today, 04/17 that showed a R hip fracture and he was brought to the ED. In the ED, he was hemodynamically stable, afebrile, breathing comfortably on room air, a poor historian but was otherwise comfortable appearing and complaining of mild pain on movement of R hip without pain complaints at rest. Studies were notable for a R hip XR that showed a nondisplaced cervical neck fracture without evidence of destructive lesions, CXR without acute pathology, EKG in NSR, WBC 6.6, Hgb 11.8, platelets 168, na 140, k 3.7, Cr 0.8. Dr. Giordano was notified of his presentation by Lenny Smith who recommended admission to medicine and will evaluate the patient as a oracle identity management consultant. Of note, Mr. Neves has some known chronic cognitive decline that has previously been attributed to possible contribution from brain mets vs. possible dementia. He is a poor historian and can answer simple linear questions and this is corroborated by his daughter Aditi whom I spoke with who is the HCP. She also reported that his will expressly states that he does not want any cardiac resuscitation or mechanical respiration, though she did not immediately identify these wishes as constituents of a DNR/DNI status. He is now being admitted to medicine for pain and medical management pending orthopedic evaluation. Home Medications Scheduled Acetaminophen (Acetaminophen) 325 Mg Tablet, 650 MG PO TID, (Reported) Atorvastatin Calcium (Atorvastatin Calcium) 40 Mg Tablet, 40 MG PO DAILY, (Repor marcelo) Furosemide (Lasix) 40 Mg Tablet, 40 MG PO DAILY, (Reported) Gabapentin (Gabapentin) 300 Mg Capsule, 600 MG PO TID, (Reported) Herrin-3 Fatty Acids/Fish Oil (Fish Oil 1,000 mg Capsule) 1,000 Mg Cap, 1,000 MG PO DAILY, (Reported) Tamsulosin HCl (Flomax) 0.4 Mg Cap, 0.4 MG PO DAILY, (Reported) Umeclidinium [place] (Incruse Ellipta) 62.5 Mcg/Inh Inh, 62.5 MCG IN QAM, (Reported) Scheduled PRN Albuterol Sulfate (Ventolin Hfa) 108 Mcg/Act Aer, 2 PUFFS INH QID PRN for SHORTNESS OF BREATH, (Reported) Hydrocodone/Acetaminophen (Hydrocodone-Acetamin 5-325 mg) 1 Each Tablet, 1 TAB PO Q6H PRN for PAIN, (Reported) MDD 4 Allergies Coded Allergies: budesonide (Verified Adverse Reaction, Intermediate, THRUSH, 12/21/18) formoterol (Verified Adverse Reaction, Intermediate, THRUSH, 12/21/18) lorazepam (Verified Adverse Reaction, Mild, NAUSEA, 12/21/18) prochlorperazine (Verified Adverse Reaction, Mild, PT stated this gave him no relief and made nausea worse, 12/21/18) Past Medical History Medical History Metastatic SCLC with mets to the brain s/p brain radiation as well as chemoradiation, on surveillance since 2016, patient of Dr. Velásquez who recently was noted to not have recurrence on 11/2019 staging scans with plan now for conservative management given debility from other comorbid conditions CAD COPD prior smoker HTN HLD OA history of L hip fracture 2/2 mechanical fall s/p repair in 2018 BPH anxiety chronic back pain Mostly wheelchair bound, 2 person assist Cognitive decline that is not otherwise specified with some suspicion of 2/2 brain mets vs. dementia Surgical History Port placement Thoracentesis and chest tube placement for pneumothorax Hemorrhoidectomy L hip replacement after fracture Family History Mother - adenocarcinoma, HTN, DM Brother - HTN Social History * Smoker: former Smoker Alcohol: Denies Drugs: denies Recent Travel/Sick Contacts: Denies: Recent travel, Recent sick contacts Psychosocial History: Anxiety, Dementia, Depression Lives at [facility] home Mostly wheelchair bound. 2 person assist for minimal ambulation A-FIB/CHADSVASC A-FIB History Current/History of A-Fib/PAF?: No Current PO Anticoag Therapy: No Age/Risk Factor Scoring CHADSVASC: CHADSVASC Response (Comments) Value Age Risk Factor Age < 65 years old 0 Gender Risk Factor Male 0 Hx of CHF Yes 1 Hx of HTN Yes 1 Hx of Stroke/TIA/or VTE No 0 Hx of Diabetes No 0 Hx of Vascular Disease Yes 1 Total 3 Treatment Treatment ordered: NONE Reason Anticoagulant not given: Not indicated/[id number] Review of Systems Constitutional: Denies: Chills, Fever, Night Sweats Eyes: Denies: Pain, Vision change ENT: Denies: Head Aches, Ear Pain, Dysphagia Skin: Denies: Rash, Lesions, Breakdown Pulmonary: Denies: Dyspnea, Cough Cardiovascular: Denies: Chest Pain, Palpitations, Orthopnea, Paroxysmal Noc. Dyspnea, Lt Headedness Gastrointestinal: Denies: Nausea, Vomiting, Abdominal Pain, Diarrhea Genitourinary: Denies: Dysuria, Frequency, Incontinence, Retention Hematologic: Denies: Bruising, Bleeding Excessively Endocrine: Denies: Polydipsia, Polyphagia, Polyuria, Heat Intolerance, Cold Intolerance, Other Endocrine Sx Musculoskeletal: Reports: Back Pain (chronic), Leg Pain (R hip pain), Joint Pain Neurological: Denies: Weakness, Numbness, Change in speech, Confusion, Seizures Psych: Denies: Anxiety, Depression Physical Examination General Exam: Positive: Alert, Cooperative, No Acute Distress Eye Exam: Positive: PERRLA, Conjunctiva & lids normal, EOMI; Negative: Sclera icteric, Ptosis ENT Exam: Positive: Mucous membr. moist/pink, Tongue Midline, Nares Patent, Other ENT (edentulous); Negative: Atraumatic (has small linear laceration on forehead without active bleeding, resolving) Neck Exam: Positive: Supple; Negative: JVD, thyromegaly Chest Exam: Positive: Clear to auscultation, Normal air movement Heart Exam: Positive: Rate Normal, Regular Rhythm, Normal S1, Normal S2; Negative: Murmurs, Rubs Telemetry: Positive: No significant arrhythmia, Sinus Abdomen Exam: Positive: Normal bowel sounds, Soft; Negative: Tenderness, Hepatospenomegaly Extremity Exam: Positive: Normal pulses; Negative: Clubbing, Cyanosis, Edema Skin Exam: Positive: Nl turgor and temperature, Other skin issue (forehead submm linear laceration that is healing); Negative: Breakdown, Lesion Neuro Exam: Positive: Normal Speech, Strength at 5/5 X4 ext (R hip exam limited by pain ), Sensation Intact, Cranial Nerves 3-12 NL Psych Exam: Positive: Mental status NL, Oriented x 3; Negative: Anxiety, Memory Intact (poor historian, gives basic 1 to 2 word answers, without much detail) Vital Signs Vital Signs Date Time Temp Pulse Resp B/P (MAP) Pulse Ox O2 Delivery O2 Flow Rate FiO2 04/17/20 16:22 98.2 80 18 123/57 (79) 92 Room Air Laboratory Data Labs 24H Laboratory Tests 2 04/17/20 17:15: Immature Granulocyte % (Auto) 0.3, Neutrophils (%) (Auto) 72.2H, Lymphocytes (%) (Auto) 10.4L, Monocytes (%) (Auto) 12.8H, Eosinophils (%) (Auto) 3.8H, Basophils (%) (Auto) 0.5, Neutrophils # (Auto) 4.7, Lymphocytes # (Auto) 0.7L, Monocytes # (Auto) 0.8, Eosinophils # (Auto) 0.3, Basophils # (Auto) 0.0, Nucleated Red Blood Cells % (auto) 0.0, Anion Gap 5L, Glomerular Filtration Rate > 60.0, Calcium Level 8.5L CBC/BMP Laboratory Tests 04/17/20 17:15 Assessment/Plan 64 yo M with a history of 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 Velásquez who recently was noted to not have recurrence on 11/2019 staging scans with plan now for conservative treatment given other comorbid conditions, CAD, COPD, prior smoker, HTN, HLD, OA, history of L hip fracture 2/2 mechanical fall s/p repair in 2018, BPH, anxiety, chronic back pain, mostly wheelchair bound, 2 person assist for minimal mobility, [facility] home resident who recent suffered a mechanical fall on 04/12/2020 c/b persistent R hip pain now admitted for confirmed R hip femoral neck fracture. R hip fracture: -Pain appears well controlled per outpatient pain regimen, so will continue the norco 1 tab Q6PRN for severe pain, scheduled 650mg TID acetaminophen and gabapentin 600 TID -Consulted Dr. Giordano, who was made aware of patient's presentation and will evaluate as oracle identity management consultant. -PT/OT with direction per ortho recs -fall risk precautions -Per imaging, non-displaced, awaiting surgery recs given minimal ambulation and mostly wheelchair bound. Preop assessment in the event that it is considered by orthopedics: -Euvolemic on exam -CBC and BMP wnl with mild anemia and baseline renal function -EKG with NSR and telemetry within normal limits -Currently on room air without respiratory complications, however with COPD with out acute decompensation and CXR without evidence of acute pathology, will order incentive spirometer -RCRI, class III risk with 10.1% 30 day risk of , MD or cardiac arrest -Otherwise medically cleared if indicated per surgical evaluation Presumed CHF, unspecified at this time -continue home lasix 40 QD COPD: stable -continue spiriva and PRN albuterol HLD: -continue lipitor BPH: -continue flomax DVT ppx: heparin SQ and TEDs Metastatic SCLC: -stable with no evidence of recent POD on 11/2019 restaging scans with plan for conservative management if it recurs with focus on symptom management CAD s/p remote PCI -stable, non ischemic EKG, no symptoms. Dispo: Medsurg Code status: DNR/DNI, needs MOLST however, confirmed by daughter, per his WILL. Plan / VTE VTE Prophylaxis Ordered?: Yes TRIP VIVEROS MD Apr 17, 2020 21:24
[2020-04-17 22:15] LABS: INR 1.11
[2020-04-17 22:16] LABS: PARTIAL THROMBOPLASTIN TIME 29.7 SECONDS (25.0-38.4)
[2020-04-17 23:40] VITALS: BP 115/75
[2020-04-18 06:00] VITALS: BP 157/89
[2020-04-18] MEDS ORDERED: LR 1,000 ML IV SCH (06:00)
[2020-04-18 07:06] LABS: HEMATOCRIT 36.5 % (42.0-52.0); HEMOGLOBIN 11.9 g/dl (13.5-17.5); MEAN CORPUSCULAR HEMOGLOBIN 31.5 pg (27.0-33.0); MEAN CORPUSCULAR HGB CONC 32.6 g/dl (32.0-36.5); MEAN CORPUSCULAR VOLUME 96.6 fl (80.0-96.0); PLATELET COUNT, AUTOMATED 179 10^3/uL (150-450); RED BLOOD COUNT 3.78 10^6/uL (4.30-6.10); WHITE BLOOD COUNT 5.3 10^3/uL (4.0-10.0)
[2020-04-18 07:26] LABS: BLOOD UREA NITROGEN 20 MG/DL (7-18); CALCIUM LEVEL 9.1 MG/DL (8.8-10.2); CARBON DIOXIDE LEVEL 33 MEQ/L (21-32); CHLORIDE LEVEL 101 MEQ/L (98-107); CREATININE FOR GFR 0.69 MG/DL (0.70-1.30); GLOMERULAR FILTRATION RATE > 60.0 (>49); GLUCOSE, FASTING 96 MG/DL (70-100); MAGNESIUM LEVEL 2.4 MG/DL (1.8-2.4); SODIUM LEVEL 139 MEQ/L (136-145)
[2020-04-18] MEDS ORDERED: ceFAZolin SOD 2 GM in IV 1 EA IV ONE (08:00)
[2020-04-18] MEDS ORDERED: TIOTROPIUM INHALER/CAPSULE (SPIRIVA) INH SCH (08:00)
--- NOTE | 2020-04-18 08:02 | REP ---
AP PELVIS: Single view. HISTORY: Rule out fracture right hip. Comparison pelvic radiographs January 06, 2018. FINDINGS: There is a intermedullary farida and a femoral neck pin on the left from previous injury. There are pelvic phleboliths and vascular calcification. Bony pelvic ring is intact. No pelvic fractures seen. There is however cortical discontinuity across the femoral neck on the right consistent with an impacted femoral neck fracture on the right as a new finding. IMPRESSION: Slightly impacted femoral neck fracture on the right nondisplaced. Pins in place left hip. No pelvic fracture seen. Electronically Signed by Enrique Gillespie MD 04/18/2020 08:23 A
--- NOTE | 2020-04-18 08:05 | ECGEPIP ---
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
[2020-04-18] MEDS: ACETAMINOPHEN TAB 650MG DOSE (2X325MG) PO SCH (08:26)
[2020-04-18] MEDS: GABAPENTIN 300 MG CAP PO SCH (08:26)
[2020-04-18] MEDS ORDERED: TAMSULOSIN 0.4 MG CAP PO SCH (09:00)
[2020-04-18] MEDS ORDERED: OMEGA-3 1000MG CAPSULE PO SCH (09:00)
[2020-04-18] MEDS ORDERED: FUROSEMIDE 40 MG TAB PO SCH (09:00)
[2020-04-18] MEDS ORDERED: ATORVASTATIN 20 MG TAB PO SCH (09:00)
[2020-04-18] MEDS ORDERED: KCL 40MEQ in NS 1000ML 1,000 ML IV SCH (10:00)
[2020-04-18] MEDS ORDERED: BUPIVACAINE/EPIN 0.25% 30 ML VIAL As Ordered ONE (10:07)
[2020-04-18] MEDS ORDERED: ceFAZolin 1GM VIAL (J0690 PER 500MG) As Ordered ONE (10:08)
--- NOTE | 2020-04-18 11:52 | IPNPDOC ---
Text Note Date of Service The patient was seen on 04/18/20. NOTE SUBJECTIVE: Patient is seen today lying comfortably in bed. He states he has some pain in his hip but is not bothering him too much. He understands that he will be going to surgery. He is oriented only to person, he does have some underlying cognitive impairment. He answers questions with short, one or two word answers. OBJECTIVE: VITAL SIGNS: See below GENERAL: Alert, comfortable, in no acute distress HEENT: Normocephalic, atraumatic, PERRLA, EOMI, moist mucous membranes NECK: Supple, trachea midline, no lymphadenopathy, no JVD CARDIOVASCULAR: Regular rate and rhythm, normal S1 and S2. No murmurs, rubs, or gallops RESPIRATORY: Clear to auscultation bilaterally with equal air entry bilaterally. No wheezing, rhonchi, or rales. ABDOMEN: Soft, nontender, nondistended, bowel sounds present, no masses or hepatosplenomegaly appreciated EXTREMITIES: No cyanosis or edema. Pulses 2+/4 in bilateral upper and lower extremities SKIN: [place], warm, dry NEUROLOGIC: Alert and oriented x1 to person, cannot tell me place or time. Unsure if this is baseline mentation. No focal deficits appreciated PSYCHIATRIC: Mood and affect appropriate ASSESSMENT/PLAN: 64-year-old male is with a history of left hip fracture secondary to mechanical fall, status post repair in 2018, who recently suffered a mechanical fall on 04/12/20, the who presented with persistent right hip pain admitted for right hip femoral neck fracture # Right hip fracture: - Hip XR show "Nondisplaced cervical neck fracture with slight impaction." -Pain appears well controlled per outpatient pain regimen, continue the norco 1 tab Q6PRN for severe pain, scheduled 650mg TID acetaminophen and gabapentin 600 TID -Orthopedic surgery consulted, appreciate their input and recommendations. -pre-op clearance per H&P: RCRI, class III risk with 10.1% 30 day risk of , ID or cardiac arrest -PT/OT evaluations postoperatively, fall risk precautions # Presumed CHF, unspecified at this time -continue home lasix 40 QD # COPD, stable -continue spiriva and PRN albuterol # BPH -continue flomax # Metastatic SCLC -stable with no evidence of recent POD on 11/2019 restaging scans with plan for conservative management if it recurs with focus on symptom management # CAD s/p remote PCI -stable, non ischemic EKG, no symptoms. -continue lipitor DVT prophylaxis: Teds and sequentials perioperatively Disposition: pending surgical intervention, plan to return to [facility] home on discharge VS,Fishbone, I+O VS, Fishbone, I+O Laboratory Tests 04/17/20 17:15 04/18/20 06:38 Vital Signs Date Time Temp Pulse Resp B/P (MAP) Pulse Ox O2 Delivery O2 Flow Rate FiO2 04/18/20 06:45 18 04/18/20 06:00 98.2 77 157/89 (111) 94 Room Air I&O- Last 24 Hours up to 6 AM 04/18/20 06:00 Intake Total 0 ml Output Total 0 ml Balance 0 ml RUSTAM SALDIVAR D.O. Apr 18, 2020 11:52
[2020-04-18] MEDS ORDERED: SODIUM CHLORIDE 0.9% INJ 10 ML SYR IV PRN (12:00)
[2020-04-19] MEDS ORDERED: SODIUM CHLORIDE 0.9% INJ 10 ML SYR IV SCH (09:00)
--- NOTE | 2020-06-13 13:10 | RO ---
DATE OF OPERATION: 04/18/2020 PREOPERATIVE DIAGNOSIS: Right hip impacted femoral neck fracture POSTOPERATIVE DIAGNOSIS: Right hip impacted femoral neck fracture PROCEDURE: Treatment of right hip fracture with percutaneous screws. Closed reduction of percutaneous screw placement. SURGEON: Manjinder Giordano MD BUDGET MANAGER: None. ANESTHESIA: General ESTIMATED BLOOD LOSS: Less than 15 ml, replaced with Crystalloid COMPLICATIONS: None. COMPONENTS USED: Include two 95 mm, 7.3 mm screws and one 90 mm screw. INDICATIONS: Impacted femoral neck fracture on the right in a previous ambulator. Consent reviewed in detail including discussion of risks, benefits, alternatives including doing nothing. OPERATIVE NOTE: Identified in the holding area, site and side verified, brought to the operating room. Once anesthesia was administered, positioned on the fracture table to allow the hip to be secured. The hip position was verified fluoroscopically, AP and lateral planes, it was thoroughly prepped and draped in usual fashion. Time-out was accomplished. Using fluoroscopy, I plotted the incision. I made the incision lateral to the femur. I advanced the guidewire to the lateral femur and into the femoral head under fluoroscopic visualization in the AP, lateral and oblique planes. Next, I drilled an additional two guidewires for three cannulated screws. I measured off of the guidewire for two 95 mm screws and a single 90 mm screw. Next, I then over drilled the guidewires at the lateral cortex and placed the appropriate screws and verified screw placement on AP, lateral and oblique fluoroscopy. Once this was accomplished, I irrigated the wound, closed wound with interrupted stitches, as well as Prineo dressing. Next, once this was accomplished, the patient was moved to the hospital bed, moved to the recovery room in good condition. EVETTE
[2020-07-10] MEDS ORDERED: MILKSUS3 PO (15:36)
--- NOTE | 2020-07-23 15:40 | DS ---
DATE OF ADMISSION: 04/17/2020 DATE OF DISCHARGE: 04/19/2020 ATTENDING PHYSICIAN: Dr. Manjinder Giordano ADMITTING DIAGNOSIS: Right hip impacted femoral neck fracture. OTHER DIAGNOSES: 1. Coronary artery disease. 2. Chronic obstructive pulmonary disease (COPD). 3. Hypertension. 4. Hyperlipidemia. 5. Benign prostatic hypertrophy (BPH). 6. Anxiety. 7. Chronic back pain. 8. Cognitive decline. DISCHARGE DIAGNOSIS: Right hip impacted femoral neck fracture status post closed reduction and percutaneous screw placement. HISTORY: Patient is a 64-year-old male with multiple other comorbid conditions. He was a resident at the [facility] when he sustained a mechanical fall on 04/12/2020. He ended up having x-rays and was brought to the emergency room for a right impacted femoral neck fracture. OPERATION PERFORMED: Closed reduction and percutaneous screw placement for a right hip fracture. HOSPITAL COURSE: The patient underwent a closed reduction and percutaneous screw placement for a right impacted femoral neck fracture under general anesthesia, which was uneventful. His hospital course was without complication. Patient was discharged on oral pain medications and will resume his preoperative medications and diet. He will use his anticoagulant as directed to prevent deep venous thrombosis. Patient will followup in our office in 12-14 days for a wound check and re-evaluation. He is encouraged to contact our office sooner if there is any increase in pain, redness, drainage, numbness or tingling in the extremity, fever greater than 101 degrees, or any other concerns. Please see medical records for additional details. EVETTE
== END 2020-04-19 09:40 | disposition home or self-care (01) | DRG 482 ==
LOC: EDBD 16:04 → M ED 16:04 → M ED INP 19:30 → ENRESERV 21:12 → M MS5PR 23:40
PROVIDERS: ADMIT Internal Medicine; ATTEND Internal Medicine
PROC: 0QS634Z Reposition Right Upper Femur with Internal Fixation Device, Percutaneous Approach (ICD-10-PCS; principal; 2020-04-18)
DX: S72.091A Other fracture of head and neck of right femur, initial encounter for closed fracture (principal); Z85.118 Personal history of other malignant neoplasm of bronchus and lung; I25.10 Atherosclerotic heart disease of native coronary artery without angina pectoris; J44.9 Chronic obstructive pulmonary disease, unspecified; I11.0 Hypertensive heart disease with heart failure; I50.9 Heart failure, unspecified; R41.89 Other symptoms and signs involving cognitive functions and awareness; Z66 Do not resuscitate; E78.5 Hyperlipidemia, unspecified; M19.90 Unspecified osteoarthritis, unspecified site; F03.90 Unspecified dementia, unspecified severity, without behavioral disturbance, psychotic disturbance, mood disturbance, and anxiety; N40.0 Benign prostatic hyperplasia without lower urinary tract symptoms; F41.9 Anxiety disorder, unspecified; Z79.899 Other long term (current) drug therapy; Z87.891 Personal history of nicotine dependence; Z88.8 Allergy status to other drugs, medicaments and biological substances; Z92.3 Personal history of irradiation; Z92.21 Personal history of antineoplastic chemotherapy; Z99.3 Dependence on wheelchair